=== PATIENT | female | born 1950 | race Two or more races ===

== ENCOUNTER 2022-11-06 14:03 | Inpatient (IN) | payer OTHER, MEDICAID ==
[~2022-11-06] VITALS: Ht 157.5 cm; Wt 96.0 kg
[2022-11-06] MEDS ORDERED: SODIUM CHLORIDE 0.9% 1,000 ML IV ONE (14:15)
[2022-11-06] MEDS ORDERED: DOCUSATE SOD 100 MG CAP PO ONE (14:15)
[2022-11-06 15:01] LABS: Alanine Aminotransferase 33 U/L (7-40); Alkaline Phosphatase 103 U/L (46-116); Aspartate Aminotransferase 35 U/L (13-40); BUN/Creatinine Ratio 18.5 (10.0-20.0); Blood Urea Nitrogen 22 mg/dL (9-23); Calcium 8.6 mg/dL (8.5-10.1); Chloride 97 mmol/L (98-107); Glucose 158 mg/dL (74-106); Potassium 3.9 mmol/L (3.5-5.1); Sodium 131 mmol/L (136-145)
[2022-11-06 15:02] LABS: Albumin 3.9 g/dL (3.2-4.8); Bilirubin, Total 0.8 mg/dL (0.2-1.0); Total Protein 6.9 g/dL (5.7-8.2)
[2022-11-06 15:44] LABS: Basophils # (auto) 0 10 ^3/uL (0-0.2); Basophils % (auto) 0.3 % (0.0-2.0); Eosinophils # (auto) 0.2 10 ^3/uL (0-0.8); Eosinophils % (auto) 1.4 % (0.0-7.0); Hematocrit 29.8 % (36.0-46.0); Hemoglobin 9.5 g/dL (12.2-16.2); Lymphocytes # (auto) 1.7 10 ^3/uL (0.4-5.4); Lymphocytes % (auto) 15.4 % (10.0-50.0); Mean Corpuscular Hemoglobin 25.3 pg (28.0-32.0); Mean Corpuscular Hgb Conc. 31.8 g/dL (32.0-36.0); Mean Corpuscular Volume 79.6 fL (80.0-100.0); Monocytes # (auto) 0.5 10 ^3/uL (0-1.3); Monocytes % (auto) 4.1 % (0.0-12.0); Neutrophils # (auto) 8.9 10 ^3/uL (1.6-8.6); Neutrophils % (auto) 78.8 % (37.0-80.0); Red Blood Cells 3.75 10^6/uL (4.0-5.20); Red Cell Distribution Width 18.2 % (11.8-14.3); White Blood Cell 11.4 10^3/uL (4.4-10.8)
[2022-11-06 15:58] LABS: Urine Bacteria NONE SEEN /hpf (None Seen); Urine Blood Negative /uL (Negative); Urine Clarity Clear (Clear); Urine Color Colorless (Yellow); Urine Protein, UAD Negative (Negative); Urine Specific Gravity 1.009 (1.001-1.035); Urine Urobilinogen Normal (Negative); Urine WBC <1 /hpf (0 - 5); Urine pH 5.5 (5.0-8.0)
[2022-11-06] MEDS: SODIUM CHLORIDE 0.9% 1,000 ML IV SCH (17:30)
[2022-11-06] MEDS ORDERED: DOCUSATE SOD 100 MG CAP PO PRN (17:30)
[2022-11-06] MEDS ORDERED: DEXTROSE (50%) 50ML SYRG IV PRN (18:15)
[2022-11-06 18:20] VITALS: PULSE 71; RESP 11; O2SAT 96
[2022-11-06] MEDS: InsuLIN REG 1unit/0.01ml Soln (100units/ml) SC SCH (18:30)
[2022-11-06] MEDS: ACCU-CHEK COMFORT CURVE STRIP VI SCH (18:30)
[2022-11-06 20:00] VITALS: PULSE 76; RESP 22; O2SAT 100
[2022-11-07] MEDS: ONDANSETRON HCL 4 MG/2 ML VIAL IV PRN (00:25)
[2022-11-07] MEDS: MORPHINE SULFATE INJ 2 MG/ml SYRG IV PRN ×2 (00:26→21:14)
[2022-11-07] MEDS: SODIUM CHLORIDE 0.9% 1,000 ML IV SCH ×3 (02:11→20:58)
[2022-11-07] MEDS ORDERED: LEVO50TA7 PO (05:23)
[2022-11-07] MEDS ORDERED: CARV25TA55 PO (05:23)
[2022-11-07] MEDS ORDERED: HYDR200T36 PO (05:23)
[2022-11-07] MEDS ORDERED: LOSA50TA46 PO (05:23)
[2022-11-07] MEDS ORDERED: GABA-1250 PO (05:23)
[2022-11-07] MEDS ORDERED: ASPI-543 PO (05:23)
[2022-11-07] MEDS ORDERED: OMEP20TA PO (05:23)
[2022-11-07 06:56] LABS: Alanine Aminotransferase 34 U/L (7-40); Albumin 4.2 g/dL (3.2-4.8); Alkaline Phosphatase 101 U/L (46-116); Anion Gap 8.2 (5-15); Aspartate Aminotransferase 33 U/L (13-40); BUN/Creatinine Ratio 13.9 (10.0-20.0); Blood Urea Nitrogen 16 mg/dL (9-23); Calcium 9.1 mg/dL (8.7-10.4); Carbon Dioxide 22.8 mmol/L (20-30); Chloride 106 mmol/L (98-107); Glucose 95 mg/dL (74-106); Sodium 137 mmol/L (136-145)
[2022-11-07 06:57] LABS: Bilirubin, Total 0.7 mg/dL (0.2-1.0); Total Protein 7.5 g/dL (5.7-8.2)
[2022-11-07] MEDS: InsuLIN REG 1unit/0.01ml Soln (100units/ml) SC SCH ×4 (07:00→21:14)
[2022-11-07] MEDS: ACCU-CHEK COMFORT CURVE STRIP VI SCH ×4 (07:04→21:14)
[2022-11-07 07:29] LABS: Basophils # (auto) 0 10 ^3/uL (0-0.2); Basophils % (auto) 0.6 % (0.0-2.0); Eosinophils # (auto) 0.3 10 ^3/uL (0-0.8); Eosinophils % (auto) 3.7 % (0.0-7.0); Hematocrit 30.8 % (36.0-46.0); Lymphocytes # (auto) 2.5 10 ^3/uL (0.4-5.4); Lymphocytes % (auto) 30.5 % (10.0-50.0); Mean Corpuscular Hemoglobin 25.6 pg (28.0-32.0); Mean Corpuscular Hgb Conc. 32.6 g/dL (32.0-36.0); Mean Corpuscular Volume 78.4 fL (80.0-100.0); Monocytes # (auto) 0.4 10 ^3/uL (0-1.3); Monocytes % (auto) 5.1 % (0.0-12.0); Neutrophils # (auto) 4.9 10 ^3/uL (1.6-8.6); Neutrophils % (auto) 60.1 % (37.0-80.0); Red Blood Cells 3.92 10^6/uL (4.0-5.20); White Blood Cell 8.1 10^3/uL (4.4-10.8)
[2022-11-07 08:00] VITALS: PULSE 60; RESP 12; O2SAT 100
[2022-11-07 09:22] LABS: Anisocytosis Slight; Platelet Estimate Adequate
[2022-11-07] MEDS ORDERED: LORazepam 2MG/ML-1ML VIAL IV PRN (10:15)
[2022-11-07 13:47] VITALS: BP 139/68; PULSE 69; RESP 14; TEMP 98.7; O2SAT 100
[2022-11-07 20:00] VITALS: PULSE 85
[2022-11-07 22:00] VITALS: BP 138/72; PULSE 100; RESP 22; TEMP 98.2; O2SAT 99
[2022-11-07 22:40] VITALS: PULSE 88; O2SAT 94
[2022-11-08] VITALS (8 sets, daily range): BP systolic 136–173; BP diastolic 66–94; PULSE 20–108; RESP 18–98; TEMP 36.4; O2SAT 95–100
[2022-11-08] MEDS: SODIUM CHLORIDE 0.9% 1,000 ML IV SCH ×3 (02:54→18:34)
[2022-11-08] MEDS: InsuLIN REG 1unit/0.01ml Soln (100units/ml) SC SCH (06:09)
[2022-11-08] MEDS: ACCU-CHEK COMFORT CURVE STRIP VI SCH (06:10)
[2022-11-08] MEDS: LOSARTAN POTASSIUM 50 MG TAB PO SCH (13:44)
[2022-11-08] MEDS: ASPirin-EC 81 mg tab PO SCH (13:44)
[2022-11-08] MEDS: hydrOXYchloroQUINE SULFATE 200 MG TAB PO SCH (13:45)
[2022-11-08] MEDS: LEVOTHYROXINE SODIUM 50 MCG TAB PO SCH (13:46)
[2022-11-08] MEDS: MORPHINE SULFATE INJ 2 MG/ml SYRG IV PRN (18:30)
[2022-11-08] MEDS ORDERED: GABAPENTIN 300 MG CAP PO SCH (22:00)
[2022-11-08] MEDS ORDERED: PATIENTS OWN MEDICATION (Carvedilol 25 MG) PO SCH (22:00)
[2022-11-08] MEDS: CARVEDILOL 12.5 MG TAB PO SCH (22:40)
[2022-11-09] MEDS ORDERED: MELATONIN 5 MG TAB PO ONE (01:22)
[2022-11-09] MEDS: ONDANSETRON HCL 4 MG/2 ML VIAL IV PRN (01:28)
[2022-11-09] MEDS: SODIUM CHLORIDE 0.9% 1,000 ML IV SCH ×2 (03:50→12:10)
[2022-11-09 05:00] VITALS: BP 155/38; PULSE 75; RESP 20; TEMP 98.5; O2SAT 99
[2022-11-09] MEDS: LEVOTHYROXINE SODIUM 50 MCG TAB PO SCH (06:03)
[2022-11-09 08:00] VITALS: BP 119/57; PULSE 65; PULSE 75; RESP 19; TEMP 36.9; O2SAT 96
[2022-11-09 09:00] VITALS: BP 119/57; PULSE 75; RESP 19; TEMP 97.8; O2SAT 96
[2022-11-09] MEDS: ASPirin-EC 81 mg tab PO SCH (09:18)
[2022-11-09] MEDS: hydrOXYchloroQUINE SULFATE 200 MG TAB PO SCH (09:18)
[2022-11-09] MEDS: CARVEDILOL 12.5 MG TAB PO SCH (09:18)
[2022-11-09] MEDS: LOSARTAN POTASSIUM 50 MG TAB PO SCH (09:19)
[2022-11-09 10:15] VITALS: BP 119/57; PULSE 75; TEMP 36.9
[2022-11-09 11:32] VITALS: BP 119/57; PULSE 75; TEMP 36.6
== END 2022-11-09 14:00 | disposition home health service (06) | DRG 312 ==
LOC: EDBD 14:03 → ER 14:03 → TELE 17:46 → TELE-WESTW 11-07 17:07
PROVIDERS: ADMIT Nurse Practitioner Family; ATTEND Family Medicine
PROC: 5A09357 Assistance with Respiratory Ventilation, Less than 24 Consecutive Hours, Continuous Positive Airway Pressure (ICD-10-PCS; principal; 2022-11-07)
DX: R55 Syncope and collapse (principal); D62 Acute posthemorrhagic anemia; N17.9 Acute kidney failure, unspecified; E87.1 Hypo-osmolality and hyponatremia; K80.20 Calculus of gallbladder without cholecystitis without obstruction; E03.9 Hypothyroidism, unspecified; N18.9 Chronic kidney disease, unspecified; E66.01 Morbid (severe) obesity due to excess calories; R73.9 Hyperglycemia, unspecified; M06.9 Rheumatoid arthritis, unspecified; I12.9 Hypertensive chronic kidney disease with stage 1 through stage 4 chronic kidney disease, or unspecified chronic kidney disease; G47.10 Hypersomnia, unspecified; E07.9 Disorder of thyroid, unspecified; K21.9 Gastro-esophageal reflux disease without esophagitis; E78.5 Hyperlipidemia, unspecified; R73.03 Prediabetes; Z99.3 Dependence on wheelchair; Z68.38 Body mass index [BMI] 38.0-38.9, adult
CPT/HCPCS: 36415; 70450; 70551; 71045; 74176; 80053; 81001; 82962; 83036; 83880; 84443; 84484; 85025; 93005; 93306; 93886; 94660; 95819; 96360; 96361; G0378; J2405

== ENCOUNTER 2024-08-06 18:55 | Inpatient (IN) | payer OTHER, MEDICAID ==
[~2024-08-06] VITALS: Ht 154.9 cm; Wt 88.3 kg
[~2024-08-06 18:55] MED LIST: ASPI-543 PO; CARV25TA55 PO; GABA-1250 PO; HYDR200T36 PO; LEVO50TA7 PO; LOSA-534 PO; OMEP20TA PO
--- NOTE | 2024-08-06 19:32 | ED.PDOC ---
History of Present Illness HPI Comments 73-year-old female came to ER for abnormal labs. Patient has history of peptic ulcer disease and GI bleed. Was sent here your provider care provider due to hemoglobin levels of 6.7. She denies any active bleeding. Denies any shortness a breath or history of blood transfusions. Patient does admit that she feels generally weak. Chief Complaint: Abnormal LAB's Time Seen by MD: 19:31 Primary Care Provider: IBARRA Reviewed Notes: Nurses Notes Allergies: Coded Allergies: Penicillins (Verified Allergy, Unknown, 08/06/24) Sulfa Antibiotics (Verified Allergy, Unknown, 11/06/22) Home Meds Reported Medications Omeprazole (Gnp Omeprazole) 20 Mg Tab, 40 MG PO, TAB 11/07/22 Hydroxychloroquine Sulfate (Hydroxychloroquine Sulfat) 200 Mg Tab, 200 MG PO, MG 11/07/22 Gabapentin (Gabapentin) 300 Mg Cap, 300 MG PO, MG 11/07/22 Carvedilol (Carvedilol) 25 Mg Tab, 25 MG PO Q12HR, MG 11/07/22 Levothyroxine Sodium (Levothyroxine Sodium) 50 Mcg Tab, 50 MCG PO QAM for 30 Days, MCG 11/07/22 Aspirin (Aspir-Low) 81 Mg Tab, 81 MG PO DAILY, MG 11/07/22 Losartan Potassium (Losartan Potassium) 50 Mg Tab, 50 MG PO DAILY for 30 Days, MG 11/07/22 Information Source: Patient Mode of Arrival: Ambulatory Severity: Moderate Timing: Hours Duration: Since onset Prehospital treatment: None Past Medical History PAST MEDICAL HISTORY: HTN, PUD Surgical History: Denies all surgeries TRAY FILLER History: Denies all TRAY FILLER Hx Family History Family History: Reviewed,noncontributory to illness Social History Smoker: Non-Smoker Alcohol: Denies ETOH Use Drugs: Denies Drug Use Lives In: Home Constitutional: reports: weakness; denies: chills, diaphoresis, fatigue, fever, malaise, sweats, others EENTM: denies: blurred vision, double vision, ear bleeding, ear discharge, ear drainage, ear pain, ear ringing, eye pain, eye redness, hearing loss, mouth pain, mouth swelling, nasal discharge, nose bleeding, nose congestion, nose pain, photophobia, tearing, throat pain, throat swelling, voice changes, others Respiratory: denies: cough, hemoptysis, orthopnea, SOB at rest, shortness of breath, SOB with excertion, stridor, wheezing, others Cardiovascular: denies: chest pain, dizzy spells, diaphoresis, Dyspnea on exertion, edema, irregular heart beat, left arm pain, lightheadedness, palpitations, PND, syncope, others Gastrointestinal: denies: abdomen distended, abdominal pain, blood streaked bowels, constipated, diarrhea, dysphagia, difficulty swallowing, hematemesis, melena, nausea, poor appetite, poor fluid intake, rectal bleeding, rectal pain, vomiting, others Genitourinary: denies: abnormal vagina bleeding, burning, dyspareunia, dysuria, flank pain, frequency, hematuria, incontinence, pain, , vagina discharge, urgency, others Neurological: denies: dizziness, fainting, headache, left sided numbness, left sided weakness, numbness, paresthesia, pre-existing deficit, right sided numbness, right sided weakness, seizure, speech problems, tingling, tremors, weakness, others Musculoskeletal: denies: back pain, gout, joint pain, joint swelling, muscle pain, muscle stiffness, neck pain, others Integumetry: denies: bruises, change in color, change in hair/nails, dryness, laceration, lesions, lumps, rash, wounds, others Allergic/Immunocompromised: denies: Difficulty Healing, Frequent Infections, Hives, Itching, others Hematologic/Lymphatic: denies: anemia, blood clots, easy bleeding, easy bruising, swollen glands, others Endocrine: denies: excessive hunger, excessive sweating, excessive thirst, excessive urination, flushing, intolerance to cold, intolerance to heat, unexplained weight gain, unexplained weight loss, others Psychiatric: denies: anxiety, bipolar disorder, depression, hopeless, panic disorder, schizophrenia, sleepless, suicidal, others Physical Exam General Appearance: No Apparent Distress, Normal HEENT: Normal ENT Inspection, Pharynx Normal, TMs Normal Neck: Full Range of Motion, Non-Tender, Normal, Normal Inspection Respiratory: Chest Non-Tender, Lungs Clear, No Accessory Muscle Use, No Respiratory Distress, Normal Breath Sounds Cardiovascular: No Edema, No JVD, No Murmur, No Gallop, Normal Peripheral Pulses, Regular Rate/Rhythm Breast Exam: Deferred Gastrointestinal: No Organomegaly, Non Tender, No Pulsatile Mass, Normal Bowel Sounds, Soft Genitalia: Deferred Pelvic: Deferred Rectal: Deferred Extremities: No calf tenderness, Normal capillary refill, Normal inspection, Normal range of motion, Non-tender, No pedal edema Musculoskeletal : Apperance: Normal Neurologic: Alert, instructor product inspection II-XII nml as Tested, No Motor Deficits, Normal Affect, Normal Mood, No Sensory Deficits Cerebellar Function: Normal Reflexes: Normal Skin: Dry, Normal Color, Warm Lymphatic: No Adenopathy Was a procedure done? Was a procedure done?: No Differential Dx Considerations may include: Anemia, electrolyte imbalance, GI bleed X-Ray, Labs, Meds, VS Vital Signs Date Time Temp Pulse Resp B/P (MAP) Pulse Ox O2 Delivery O2 Flow Rate FiO2 08/06/24 19:43 98.8 106 16 120/87 (98) 96 98.8 Lab Test 08/06/24 19:47 08/06/24 00:00 Range/Units White Blood Count 5.4 4.4-10.8 10^3/uL Red Blood Count 3.81 L 4.0-5.20 10^6/uL Hemoglobin 7.8 L 12.2-16.2 g/dL Hematocrit 25.5 L 36.0-46.0 % Mean Corpuscular Volume 66.8 L 80.0-100.0 fL Mean Corpuscular Hemoglobin 20.3 L 28.0-32.0 pg Mean Corpuscular Hemoglobin Concent 30.5 L 32.0-36.0 g/dL Red Cell Distribution Width 22.2 H 11.8-14.3 % Platelet Count 380 140-450 10^3/uL Mean Platelet Volume 8.0 6.9-10.8 fL Neutrophils (%) (Auto) 66.3 37.0-80.0 % Lymphocytes (%) (Auto) 23.4 10.0-50.0 % Monocytes (%) (Auto) 5.5 0.0-12.0 % Eosinophils (%) (Auto) 2.2 0.0-7.0 % Basophils (%) (Auto) 2.6 H 0.0-2.0 % Neutrophils # (Auto) 3.6 1.6-8.6 10 ^3/uL Lymphocytes # (Auto) 1.3 0.4-5.4 10 ^3/uL Monocytes # (Auto) 0.3 0-1.3 10 ^3/uL Eosinophils # (Auto) 0.1 0-0.8 10 ^3/uL Basophils # (Auto) 0.1 0-0.2 10 ^3/uL Nucleated Red Blood Cells 0.2 % Prothrombin Time 10.6 9.3-11.8 sec Prothrombin Time INR 1.00 0.9-1.15 Activated Partial Thromboplast Time 23.2 L 24.5-34.5 SEC Sodium Level 140 136-145 mmol/L Potassium Level 3.7 3.5-5.1 mmol/L Chloride Level 102 98-107 mmol/L Carbon Dioxide Level 25 20-31 mmol/L Anion Gap 13 5-15 Blood Urea Nitrogen 18 9-23 mg/dL Creatinine 1.31 H 0.550-1.02 mg/dL Glomerular Filtration Rate Calc 43 >90 mL/min BUN/Creatinine Ratio 13.7 10.0-20.0 Serum Glucose 163 H 74-106 mg/dL Calcium Level 9.9 8.7-10.4 mg/dL Total Bilirubin 0.4 0.2-1.0 mg/dL Aspartate Amino Transferase (AST) 26 13-40 U/L Alanine Aminotransferase (ALT) 20 7-40 U/L Alkaline Phosphatase 84 46-116 U/L Total Protein 7.8 5.7-8.2 g/dL Albumin 4.7 3.2-4.8 g/dL Urine Color Light-yellow Yellow Urine Clarity Clear Clear Urine pH 7.0 5.0-9.0 Urine Specific [place] 1.015 1.001-1.035 Urine Protein Negative Negative Urine Ketones Negative Negative Urine Blood Negative Negative /uL Urine Nitrite Negative Negative Urine Bilirubin Negative Negative Urine Urobilinogen Normal Negative mg/dL Urine Leukocyte Esterase Trace Negative /uL Urine RBC <1 0 - 4 /hpf Urine Microscopic WBC 10 H 0-5 /HPF Urine Squamous Epithelial Cells Few <5 /hpf Urine Bacteria Few H None Seen /hpf Urine Glucose Normal Normal mg/dL Time of 1ST Reevaluation: 19:26 Reevaluation 1ST: Unchanged Patient Education/Counseling: Diagnosis, Treatment Family Education/Counseling: Diagnosis, Treatment Departure 1 Departure Time of Disposition: 20:53 Impression: Primary Impression: Symptomatic anemia Additional Impressions: GI bleeding Acute renal injury Disposition: 09 ADMITTED INPATIENT Condition: Guarded Discharged With: Self Comments Generalized Weakness with Severe Anemia Chief Complaint: Generalized weakness x 1 week History of Present Illness: 73-year-old female presents to the ED with complaints of generalized weakness for the past week. Patient was initially evaluated at an outpatient clinic where laboratory studies revealed anemia, prompting referral to the emergency department for further evaluation. Of note, patient has a significant past medical history of intestinal bleeding. Current labs demonstrate severe microcytic anemia with hemoglobin of 7.8 g/dL and hematocrit of 25.5%, with MCV of 67, suggesting iron deficiency. Patient also presents with elevated creatinine of 1.31, indicating acute kidney injury. Review of Systems: Limited review of systems due to nature of documentation. Constitutional: Positive for generalized weakness Other systems: Deferred/unknown Past Medical History: History of intestinal bleeding Newly identified acute kidney injury Lab Results: Hemoglobin: 7.8 g/dL (Low) Hematocrit: 25.5% (Low) MCV: 67 (Low) Creatinine: 1.31 (Elevated) Imaging and Other Relevant Results: No imaging studies documented Medical Decision Making: Summary Statement: 73-year-old female with history of intestinal bleeding presenting with generalized weakness and severe microcytic anemia, complicated by acute kidney injury. Problem List: 1. Severe microcytic anemia (Hgb 7.8) 2. Suspected GI bleeding 3. Acute kidney injury 4. Generalized weakness Differential Diagnosis: 1. GI bleeding (given history) 2. Iron deficiency anemia 3. Pre-renal acute kidney injury 4. Other causes of anemia (B12 deficiency, chronic disease) ED Course: Patient evaluated in ED with labs revealing severe anemia and RENETTA. Decision made to admit for further workup and management. Plan for IV hydration and monitoring of hemoglobin/hematocrit with possible blood transfusion if needed. Assessment and Plan: 1. Severe Microcytic Anemia with Suspected GI Bleeding: - Admit to medical floor for close monitoring - Serial CBC monitoring - GI consultation during admission - Possible blood transfusion based on clinical status 2. Acute Kidney Injury: - IV fluid hydration - Monitor renal function - Avoid nephrotoxic medications 3. Disposition: - Admission to medical floor - Close monitoring of hemodynamic status Billing Information: ICD-10: D64.9 - Anemia, unspecified ICD-10: N17.9 - Acute kidney failure, unspecified ICD-10: R53.1 - Weakness ICD-10: K92.2 - Gastrointestinal hemorrhage, unspecified Critical Care Note Critical Care Time?: Yes (35 min-critical care time only) Critical care comment: Total critical care time: Approximately 36 minutes Due to a high probability of clinically significant, life threatening deterioration, the patient required my highest level of preparedness to intervene emergently and I personally spent this critical care time directly and personally managing the patient. This critical care time included obtaining a history; examining the patient; pulse oximetry; ordering and review of studies; arranging urgent treatment with development of a management plan; evaluation of patient's response to treatment; frequent reassessment; and, discussions with other providers. This critical care time was performed to assess and manage the high probability of imminent, life-threatening deterioration that could result in multi-organ failure. It was exclusive of separately billable procedures and treating other patients. Stability Stability form required: No Heart Score Heart Score: Heart Score Response (Comments) Value History N/A 0 EKG N/A 0 Age N/A 0 Risk Factors N/A 0 Troponin N/A 0 Total 0 I personally scribed for JAZMIN VYAS MD ([email or web address]) on 08/06/24 at 19:32. Electronically submitted by Garrison Parr ([email or web address]). JAZMIN VYAS MD August 06, 2024 19:32
[2024-08-06 20:09] LABS: Eosinophils # (auto) 0.1 10 ^3/uL (0-0.8); Hematocrit 25.5 % (36.0-46.0); Lymphocytes # (auto) 1.3 10 ^3/uL (0.4-5.4); Mean Corpuscular Volume 66.8 fL (80.0-100.0); Monocytes # (auto) 0.3 10 ^3/uL (0-1.3)
[2024-08-06 20:10] LABS: Basophils # (auto) 0.1 10 ^3/uL (0-0.2); Basophils % (auto) 2.6 % (0.0-2.0); Eosinophils % (auto) 2.2 % (0.0-7.0); Hemoglobin 7.8 g/dL (12.2-16.2); Lymphocytes % (auto) 23.4 % (10.0-50.0); Mean Corpuscular Hemoglobin 20.3 pg (28.0-32.0); Mean Corpuscular Hgb Conc. 30.5 g/dL (32.0-36.0); Monocytes % (auto) 5.5 % (0.0-12.0); Neutrophils # (auto) 3.6 10 ^3/uL (1.6-8.6); Neutrophils % (auto) 66.3 % (37.0-80.0); Nucleated Red Blood Cells % 0.2 %; Platelet Count (auto) 380 10^3/uL (140-450); Red Blood Cells 3.81 10^6/uL (4.0-5.20); White Blood Cell 5.4 10^3/uL (4.4-10.8)
[2024-08-06 20:13] LABS: Red Cell Distribution Width 22.2 % (11.8-14.3)
[2024-08-06 20:18] LABS: Alanine Aminotransferase 20 U/L (7-40); Albumin 4.7 g/dL (3.2-4.8); Alkaline Phosphatase 84 U/L (46-116); Anion Gap 13 (5-15); Aspartate Aminotransferase 26 U/L (13-40); BUN/Creatinine Ratio 13.7 (10.0-20.0); Blood Urea Nitrogen 18 mg/dL (9-23); Calcium 9.9 mg/dL (8.7-10.4); Carbon Dioxide 25 mmol/L (20-31); Chloride 102 mmol/L (98-107); Potassium 3.7 mmol/L (3.5-5.1); Sodium 140 mmol/L (136-145); Total Protein 7.8 g/dL (5.7-8.2)
[2024-08-06 20:19] LABS: Bilirubin, Total 0.4 mg/dL (0.2-1.0); Glucose 163 mg/dL (74-106)
[2024-08-06 20:24] LABS: Partial Thromboplastin Time 23.2 SEC (24.5-34.5); Prothrombin Time 10.6 sec (9.3-11.8)
[2024-08-06 20:29] LABS: Urine Bacteria FEW /hpf (None Seen); Urine Blood Negative /uL (Negative); Urine Clarity Clear (Clear); Urine Color Light-Yellow (Yellow); Urine Protein, UAD Negative (Negative); Urine Specific Gravity 1.015 (1.001-1.035); Urine Squamous Epithelial Cell FEW /hpf (<5); Urine Urobilinogen Normal (Negative); Urine WBC 10 /HPF (0-5)
[2024-08-06] MEDS: PANTOPRAZOLE 40 MG/10 ML VIAL INJ IV ONE (21:00)
[2024-08-06] MEDS: SODIUM CHLORIDE 0.9% 500 ML IVB ONE (22:29)
[2024-08-06] MEDS ORDERED: SODIUM CHLORIDE 0.9% 1,000 ML IV SCH (22:30)
[2024-08-06] MEDS ORDERED: DEXTROSE (50%) 50ML SYRG IV PRN (22:30)
[2024-08-06] MEDS: PANTOPRAZOLE 40 MG/10 ML VIAL INJ IV SCH (23:17)
[2024-08-06 23:42] LABS: Erythrocyte Sedimentation Rate 84 mm/hr (0-20)
[2024-08-06 23:47] LABS: % Iron Saturation 4.1 % (15-50)
[2024-08-07] VITALS (12 sets, daily range): BP systolic 134–160; BP diastolic 64–98; PULSE 81–97; RESP 16–19; TEMP 97.5–98.6; O2SAT 93–100
[2024-08-07] MEDS: ACCU-CHEK COMFORT CURVE STRIP VI SCH
[2024-08-07 00:07] LABS: Ferritin 12.5 ng/mL (10-291)
--- NOTE | 2024-08-07 00:40 | DVH ---
CHEST RADIOGRAPH Indication: DYSPNEA Technique: Single frontal view of the chest was obtained COMPARISON: XY CHEST PORTABLE on DOS: 11/06/22 FINDINGS: Lines and Tubes: None Lungs: Clear Pleura: No effusion. No pneumothorax. Cardiomediastinal contours: Unremarkable IMPRESSION: No acute disease.
[2024-08-07] MEDS: predniSONE 20 MG TAB PO SCH (01:34)
[2024-08-07] MEDS: HYDROcodone-ACET 5/325MG TAB PO PRN (01:36)
--- NOTE | 2024-08-07 02:20 | DVHHP2 ---
History of Present Illness History of Present Illness A 73-year-old female with history of peptic ulcer disease, prior GI bleed, rheumatoid arthritis, hypothyroidism, hypertension, and possible prior stroke was referred to the ED by her PCP, Dr. Shah, due to hemoglobin 6.7. Patient denies shortness of breath or active bleeding at this time. However, she reports intermittent episodes of rectal hematochezia for the past two years. She has undergone three colonoscopiesthe last one in November 2023which reportedly did not show a clear source. She also reports a prior GI bleeding episode about one month ago. Currently, she feels generally weak. She endorses bilateral shoulder and knee pain, and inflammatory markers are elevated (ESR/CRP), raising concern for an RA flare. She was found to have iron deficiency anemia and has been started on IV iron. Transfusion planned if Hb <7. Past Medical History Surgical History: Denies all surgeries JAW SKINNER History: Denies all JAW SKINNER Hx Social History Smoker: Non-Smoker Alcohol: Denies ETOH Use Drugs: Denies Drug Use Lives In: Home Review of Systems Review of Systems Positive: weakness, hematochezia, joint pain Negative: melena, hematemesis, chest pain, SOB Allergies: Coded Allergies: Penicillins (Verified Allergy, Unknown, 08/06/24) Sulfa Antibiotics (Verified Allergy, Unknown, 11/06/22) Medications Current Medications Medications Dose Ordered Sig/Karen Route Start Time Stop Time Status Last Admin Dose Admin Levothyroxine Sodium 50 mcg QAM@0600 PO 08/07/24 06:00 Acetaminophen/ Hydrocodone Bitart 1 tab Q6HPRN PRN PO 08/07/24 00:30 08/07/24 01:36 1 TAB Pantoprazole Sodium 40 mg DAILY IV 08/07/24 10:00 Iron Sucrose 110 ml @ 110 mls/hr DAILY@1200 IV 08/07/24 12:00 08/11/24 12:59 Prednisone 20 mg DAILY PO 08/07/24 00:45 08/07/24 01:34 20 MG Hydroxychloroquine Sulfate 200 mg DAILY PO 08/07/24 10:00 Exam Vital Signs Vital Signs Date Time Temp Pulse Resp B/P (MAP) Pulse Ox O2 Delivery O2 Flow Rate FiO2 08/07/24 01:07 97.8 90 16 144/64 (90) 100 97.8 08/07/24 01:00 Room Air* 0 21 21 General Appearance: Alert, Oriented X3 HEENT: Atraumatic, PERRLA Respiratory: Clear to auscultation, Normal air movement Cardiovascular: Regular rate, Normal S1 Abdominal: Normal bowel sounds, Soft Extremities: No clubbing, No cyanosis Skin: No rashes, No breakdown Neuro: Normal gait, Normal speech Psych/Mental Status: Mental status NL Labs/Xrays Labs Test 08/07/24 02:05 08/06/24 19:47 08/06/24 00:00 Range/Units White Blood Count 5.4 4.4-10.8 10^3/uL Red Blood Count 3.81 L 4.0-5.20 10^6/uL Mean Corpuscular Volume 66.8 L 80.0-100.0 fL Mean Corpuscular Hemoglobin 20.3 L 28.0-32.0 pg Mean Corpuscular Hemoglobin Concent 30.5 L 32.0-36.0 g/dL Red Cell Distribution Width 22.2 H 11.8-14.3 % Platelet Count 380 140-450 10^3/uL Mean Platelet Volume 8.0 6.9-10.8 fL Neutrophils (%) (Auto) 66.3 37.0-80.0 % Lymphocytes (%) (Auto) 23.4 10.0-50.0 % Monocytes (%) (Auto) 5.5 0.0-12.0 % Eosinophils (%) (Auto) 2.2 0.0-7.0 % Basophils (%) (Auto) 2.6 H 0.0-2.0 % Neutrophils # (Auto) 3.6 1.6-8.6 10 ^3/uL Lymphocytes # (Auto) 1.3 0.4-5.4 10 ^3/uL Monocytes # (Auto) 0.3 0-1.3 10 ^3/uL Eosinophils # (Auto) 0.1 0-0.8 10 ^3/uL Basophils # (Auto) 0.1 0-0.2 10 ^3/uL Nucleated Red Blood Cells 0.2 % Erythrocyte Sedimentation Rate 84 H 0-20 mm/hr Prothrombin Time 10.6 9.3-11.8 sec Prothrombin Time INR 1.00 0.9-1.15 Activated Partial Thromboplast Time 23.2 L 24.5-34.5 SEC Sodium Level 140 136-145 mmol/L Potassium Level 3.7 3.5-5.1 mmol/L Chloride Level 102 98-107 mmol/L Carbon Dioxide Level 25 20-31 mmol/L Anion Gap 13 5-15 Blood Urea Nitrogen 18 9-23 mg/dL Creatinine 1.31 H 0.550-1.02 mg/dL Glomerular Filtration Rate Calc 43 >90 mL/min BUN/Creatinine Ratio 13.7 10.0-20.0 Serum Glucose 163 H 74-106 mg/dL Hemoglobin A1c 5.8 H <5.7 % A1C Calcium Level 9.9 8.7-10.4 mg/dL Iron Level 19 L 50-170 ug/dL Total Iron Binding Capacity 460 H 250-425 ug/dL Percent Iron Saturation 4.1 L 15-50 % Ferritin 12.5 10-291 ng/mL Total Bilirubin 0.4 0.2-1.0 mg/dL Aspartate Amino Transferase (AST) 26 13-40 U/L Alanine Aminotransferase (ALT) 20 7-40 U/L Alkaline Phosphatase 84 46-116 U/L C-Reactive Protein High Sensitivity 2.27 H <1.0 mg/dL B-Type Natriuretic Peptide 36.55 0-100 pg/mL Total Protein 7.8 5.7-8.2 g/dL Albumin 4.7 3.2-4.8 g/dL Vitamin B12 Level 1231 H 211-911 pg/mL Thyroid Stimulating Hormone (TSH) 2.92 0.55-4.78 uIU/mL Urine Color Light-yellow Yellow Urine Clarity Clear Clear Urine pH 7.0 5.0-9.0 Urine Specific [place] 1.015 1.001-1.035 Urine Protein Negative Negative Urine Ketones Negative Negative Urine Blood Negative Negative /uL Urine Nitrite Negative Negative Urine Bilirubin Negative Negative Urine Urobilinogen Normal Negative mg/dL Urine Leukocyte Esterase Trace Negative /uL Urine RBC <1 0 - 4 /hpf Urine Microscopic WBC 10 H 0-5 /HPF Urine Squamous Epithelial Cells Few <5 /hpf Urine Bacteria Few H None Seen /hpf Urine Glucose Normal Normal mg/dL Assessment/Plan Assessment/Plan #Acute on chronic anemia #Iron deficiency anemia #GI bleeding? #RA, acute flare up? #Hypothyroidism #H/o stroke? #Asymptomatic bacteriuria #RENETTA on possible CKD #h/o HTN #H/o neuropathy Admit Clear liquid diet Med surg Iron IV Trending Hb, transfuse below 7 Plaquenil 200mg PO Prednisone 20 mg PO Gi consult Labs am Protonix daily Hold on aspirin and DVT prohylaxis Case discussed with Dr Garcia Full code Plan discussed with: Patient, Other My Orders Orders - CLARY VU Procedure Category Date Status Time Admit ADMIT 08/06/24 Transmitted 22:26 Code Status CODE 08/06/24 Transmitted 22:26 Vital Signs JESSENIA 08/06/24 In Process 22:26 Review Orders With JESSENIA 08/06/24 In Process Adm.Md 22:26 Notify Md Of Changes JESSENIA 08/06/24 In Process From Base 22:26 Advance Directive JESSENIA 08/06/24 In Process 22:26 Patient Condition ORDERS 08/06/24 Transmitted 22:26 Allergies JESSENIA 08/06/24 In Process 22:26 Hemoglobin & LAB 08/07/24 In Process Hematocrit 02:00 Stool Occult Blood LAB 08/06/24 Logged 22:28 * Gi Dvh Metal Leaf Layer CONS 08/06/24 Transmitted 22:28 Clear Liq Diet DIET 08/07/24 Transmitted Breakfast Chest Xray 1 View XY 08/06/24 Resulted 23:13 Folate (Folic Acid) LAB 08/06/24 In Process 23:13 Vitamin B12 LAB 08/06/24 In Process 23:13 Ferritin LAB 08/06/24 In Process 23:13 Levothyroxine Tablet PHA 08/07/24 In Process (Synthroid Tablet) 06:00 Urine Bacterial ASHLEY 08/06/24 In Process Culture 23:31 Hydrocodone-Acet PHA 08/07/24 In Process 5/325mg Tab ([place] 00:30 Pantoprazole PHA 08/07/24 In Process (Protonix) 10:00 Iron Sucrose Complex PHA 08/07/24 In Process (Venofer) 12:00 Prednisone Tablet PHA 08/07/24 In Process 00:45 Hydroxychloroquine PHA 08/07/24 In Process Tablet (Plaquenil Tab 10:00 Hepatitis B Surface LAB 08/07/24 In Process Antigen 02:02 Hepatitis C Antibody LAB 08/07/24 In Process 02:02 Date of Service: August 06, 2024 Billing Provider: POWER GARCIA MD Common Visit Codes: 83742-[id number] INP/OBS CARE (HIGH) Secondary Visit Codes: [id number] CARE PLAN 30 MINUTES CLARY VU RESIDENT August 07, 2024 02:20
[2024-08-07 03:00] LABS: Hematocrit 23.4 % (36.0-46.0); Hemoglobin 7.4 g/dL (12.2-16.2)
[2024-08-07] MEDS: LEVOTHYROXINE SODIUM 50 MCG TAB PO SCH (04:59)
[2024-08-07 06:01] LABS: Basophils # (auto) 0.1 10 ^3/uL (0-0.2); Monocytes # (auto) 0.2 10 ^3/uL (0-1.3); Nucleated Red Blood Cells % 0.1 %; Red Blood Cells 3.48 10^6/uL (4.0-5.20)
[2024-08-07 06:05] LABS: Basophils % (auto) 1.3 % (0.0-2.0); Eosinophils # (auto) 0 10 ^3/uL (0-0.8); Eosinophils % (auto) 0.5 % (0.0-7.0); Hematocrit 23.1 % (36.0-46.0); Hemoglobin 7.1 g/dL (12.2-16.2); Lymphocytes # (auto) 0.8 10 ^3/uL (0.4-5.4); Lymphocytes % (auto) 11.4 % (10.0-50.0); Mean Corpuscular Hemoglobin 20.3 pg (28.0-32.0); Mean Corpuscular Hgb Conc. 30.5 g/dL (32.0-36.0); Mean Corpuscular Volume 66.5 fL (80.0-100.0); Monocytes % (auto) 2.1 % (0.0-12.0); Neutrophils # (auto) 6.3 10 ^3/uL (1.6-8.6); Neutrophils % (auto) 84.7 % (37.0-80.0); Platelet Count (auto) 328 10^3/uL (140-450); Red Cell Distribution Width 21.9 % (11.8-14.3); White Blood Cell 7.4 10^3/uL (4.4-10.8)
[2024-08-07 06:13] LABS: Anisocytosis Slight; Hypochromia Marked; Platelet Estimate Adequate
[2024-08-07 06:25] LABS: Alanine Aminotransferase 19 U/L (7-40); Alkaline Phosphatase 78 U/L (46-116); Anion Gap 12 (5-15); BUN/Creatinine Ratio 14.9 (10.0-20.0); Blood Urea Nitrogen 17 mg/dL (9-23); Calcium 10.2 mg/dL (8.7-10.4); Carbon Dioxide 23 mmol/L (20-31); Chloride 105 mmol/L (98-107); Sodium 140 mmol/L (136-145); Total Protein 7.1 g/dL (5.7-8.2)
[2024-08-07 06:26] LABS: Albumin 4.3 g/dL (3.2-4.8)
[2024-08-07 06:27] LABS: Aspartate Aminotransferase 24 U/L (13-40); Bilirubin, Total 0.4 mg/dL (0.2-1.0)
[2024-08-07 06:29] LABS: Glucose 139 mg/dL (74-106)
[2024-08-07] MEDS ORDERED: SUCRALFATE 1 GM TAB PO SCH (07:00)
--- NOTE | 2024-08-07 09:03 | DVHINCON2 ---
Date of service: August 07, [address] Echevarria Reason for Consultation Anemia History of Present Illness A 73-year-old female with history of peptic ulcer disease, prior GI bleed, rheumatoid arthritis, hypothyroidism, hypertension, and possible prior stroke was referred to the ED by her PCP, Dr. Shah, due to hemoglobin 6.7. Patient denies shortness of breath or active bleeding at this time. However, she reports intermittent episodes of rectal hematochezia for the past two years. She has undergone three colonoscopiesthe last one in November 2023which reportedly did not show a clear source. She also reports a prior GI bleeding episode about one month ago. Currently, she feels generally weak. She endorses bilateral shoulder and knee pain, and inflammatory markers are elevated (ESR/CRP), raising concern for an RA flare. She was found to have iron deficiency anemia and has been started on IV iron. Transfusion planned if Hb <7. Past Medical History peptic ulcer disease, prior GI bleed, rheumatoid arthritis, hypothyroidism, hypertension, and possible prior TIA With no residual Dificid Past Surgical History Cataract surgery Left knee surgery Family History: FH: heart disease G8 FATHER Allergies: Coded Allergies: Penicillins (Verified Allergy, Unknown, 08/06/24) Sulfa Antibiotics (Verified Allergy, Unknown, 11/06/22) Home Meds Reported Medications Omeprazole (Gnp Omeprazole) 20 Mg Tab, 40 MG PO, TAB 11/07/22 Hydroxychloroquine Sulfate (Hydroxychloroquine Sulfat) 200 Mg Tab, 200 MG PO, MG 11/07/22 Gabapentin (Gabapentin) 300 Mg Cap, 300 MG PO, MG 11/07/22 Carvedilol (Carvedilol) 25 Mg Tab, 25 MG PO Q12HR, MG 11/07/22 Levothyroxine Sodium (Levothyroxine Sodium) 50 Mcg Tab, 50 MCG PO QAM for 30 Days, MCG 11/07/22 Aspirin (Aspir-Low) 81 Mg Tab, 81 MG PO DAILY, MG 11/07/22 Losartan Potassium (Losartan Potassium) 50 Mg Tab, 50 MG PO DAILY for 30 Days, MG 11/07/22 Current Medications Current Medications Medications (Trade) Dose Ordered Sig/Karen Route PRN Reason Start Time Stop Time Status Last Admin Pantoprazole Sodium (Protonix) 40 mg BID IV 08/06/24 22:30 08/07/24 00:40 DC 08/06/24 23:17 Sodium Chloride 1,000 ml @ 60 mls/hr [id number] IV 08/06/24 22:30 08/07/24 00:28 DC Sucralfate (Carafate Tab) 1 gm QIDACHS PO 08/07/24 07:00 08/06/24 23:13 DC Diagnostic Test (Pha) (Accu-Chek Comfort Curve T) 1 strip Q6HR 08/07/24 00:00 08/07/24 00:28 DC Dextrose 50 ml UD PRN IV Blood Sugar LESS THAN 60 08/06/24 22:30 08/07/24 00:28 DC Levothyroxine Sodium (Synthroid Tablet) 50 mcg QAM@0600 PO 08/07/24 06:00 08/07/24 04:59 Acetaminophen/ Hydrocodone Bitart ([place] 5/325MG Tab) 1 tab Q6HPRN PRN PO MODERATE PAIN (4-6 PAIN SCALE) 08/07/24 00:30 08/07/24 01:36 Pantoprazole Sodium (Protonix) 40 mg DAILY IV 08/07/24 10:00 Iron Sucrose 110 ml @ 110 mls/hr DAILY@1200 IV 08/07/24 12:00 08/11/24 12:59 Prednisone 20 mg DAILY PO 08/07/24 00:45 08/07/24 01:34 Hydroxychloroquine Sulfate (Plaquenil Tablet) 200 mg DAILY PO 08/07/24 10:00 Vital Signs Vital Signs Date Time Temp Pulse Resp B/P (MAP) Pulse Ox O2 Delivery O2 Flow Rate FiO2 08/07/24 05:00 98.5 97 18 153/85 (107) 93 98.5 08/07/24 01:07 Room Air* 0 21 Physical Exam Hemodynamically stable no localizing signs Full physical examination deferred Labs/Diagnostic Data Labs Test 08/07/24 05:20 08/07/24 02:05 08/06/24 19:47 08/06/24 00:00 Range/Units White Blood Count 7.4 # 4.4-10.8 10^3/uL Red Blood Count 3.48 L 4.0-5.20 10^6/uL Hemoglobin 7.1 L 12.2-16.2 g/dL Hematocrit 23.1 L 36.0-46.0 % Mean Corpuscular Volume 66.5 L 80.0-100.0 fL Mean Corpuscular Hemoglobin 20.3 L 28.0-32.0 pg Mean Corpuscular Hemoglobin Concent 30.5 L 32.0-36.0 g/dL Red Cell Distribution Width 21.9 H 11.8-14.3 % Platelet Count 328 140-450 10^3/uL Mean Platelet Volume 8.3 6.9-10.8 fL Neutrophils (%) (Auto) 84.7 H 37.0-80.0 % Lymphocytes (%) (Auto) 11.4 10.0-50.0 % Monocytes (%) (Auto) 2.1 0.0-12.0 % Eosinophils (%) (Auto) 0.5 0.0-7.0 % Basophils (%) (Auto) 1.3 0.0-2.0 % Neutrophils # (Auto) 6.3 1.6-8.6 10 ^3/uL Lymphocytes # (Auto) 0.8 0.4-5.4 10 ^3/uL Monocytes # (Auto) 0.2 0-1.3 10 ^3/uL Eosinophils # (Auto) 0 0-0.8 10 ^3/uL Basophils # (Auto) 0.1 0-0.2 10 ^3/uL Nucleated Red Blood Cells 0.1 % Platelet Estimate Adequate Hypochromasia (manual) Marked Anisocytosis (manual) Slight Microcytosis Marked Sodium Level 140 136-145 mmol/L Potassium Level 4.0 3.5-5.1 mmol/L Chloride Level 105 98-107 mmol/L Carbon Dioxide Level 23 20-31 mmol/L Anion Gap 12 5-15 Blood Urea Nitrogen 17 9-23 mg/dL Creatinine 1.14 H 0.550-1.02 mg/dL Glomerular Filtration Rate Calc 51 >90 mL/min BUN/Creatinine Ratio 14.9 10.0-20.0 Serum Glucose 139 H 74-106 mg/dL Calcium Level 10.2 8.7-10.4 mg/dL Total Bilirubin 0.4 0.2-1.0 mg/dL Aspartate Amino Transferase (AST) 24 13-40 U/L Alanine Aminotransferase (ALT) 19 7-40 U/L Alkaline Phosphatase 78 46-116 U/L Total Protein 7.1 5.7-8.2 g/dL Albumin 4.3 3.2-4.8 g/dL Erythrocyte Sedimentation Rate 84 H 0-20 mm/hr Prothrombin Time 10.6 9.3-11.8 sec Prothrombin Time INR 1.00 0.9-1.15 Activated Partial Thromboplast Time 23.2 L 24.5-34.5 SEC Hemoglobin A1c 5.8 H <5.7 % A1C Iron Level 19 L 50-170 ug/dL Total Iron Binding Capacity 460 H 250-425 ug/dL Percent Iron Saturation 4.1 L 15-50 % Ferritin 12.5 10-291 ng/mL C-Reactive Protein High Sensitivity 2.27 H <1.0 mg/dL B-Type Natriuretic Peptide 36.55 0-100 pg/mL Vitamin B12 Level 1231 H 211-911 pg/mL Thyroid Stimulating Hormone (TSH) 2.92 0.55-4.78 uIU/mL Urine Color Light-yellow Yellow Urine Clarity Clear Clear Urine pH 7.0 5.0-9.0 Urine Specific [place] 1.015 1.001-1.035 Urine Protein Negative Negative Urine Ketones Negative Negative Urine Blood Negative Negative /uL Urine Nitrite Negative Negative Urine Bilirubin Negative Negative Urine Urobilinogen Normal Negative mg/dL Urine Leukocyte Esterase Trace Negative /uL Urine RBC <1 0 - 4 /hpf Urine Microscopic WBC 10 H 0-5 /HPF Urine Squamous Epithelial Cells Few <5 /hpf Urine Bacteria Few H None Seen /hpf Urine Glucose Normal Normal mg/dL LAST ABD CT SCAN 2022 IMPRESSION: 1. No acute abdominal or pelvic findings. 2. Cholelithiasis Problems(with codes): (1) Rheumatoid arthritis flare (2) Microcytic anemia (3) Symptomatic anemia Plan/Recommendation Plan Patient is going to be transfused 1 unit PRBC Check stool for occult blood Protonix 40 mg p.o. daily Carafate 1 g p.o. twice a day DC aspirin NSAIDs smoking and alcohol Review last endoscopy and colonoscopy results Evaluate patient for a possible repeat endoscopy she can follow up in my office as an outpatient in 1-2 weeks to arrange outpatient elective panendoscopy after reviewing previous records Plan discussed with: Other (None) SAROJ VINCENT MD August 07, 2024 09:03
[2024-08-07 09:27] LABS: Hematocrit 23.2 % (36.0-46.0)
[2024-08-07] MEDS: hydrOXYchloroQUINE SULFATE 200 MG TAB PO SCH (09:48)
[2024-08-07] MEDS: PANTOPRAZOLE 40 MG/10 ML VIAL INJ IV SCH (09:48)
[2024-08-07] MEDS: IRON SUCROSE COMPLEX 110 ML IV SCH (11:09)
[2024-08-07] MEDS ORDERED: LOSA-535 PO (11:52)
[2024-08-07] MEDS: LOSARTAN POTASSIUM 50 MG TAB PO SCH (14:12)
[2024-08-07] MEDS ORDERED: hydrALAZINE HCL 20 MG/ML VL IV PRN (14:30)
--- NOTE | 2024-08-07 16:25 | DVHPN2 ---
Subjective Patient was sent by PCP for low hemoglobin. 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 Medications Current Medications Medications Dose Ordered Sig/Karen Route Start Time Stop Time Status Last Admin Dose Admin Levothyroxine Sodium 50 mcg QAM@0600 PO 08/07/24 06:00 08/07/24 04:59 50 MCG Acetaminophen/ Hydrocodone Bitart 1 tab Q6HPRN PRN PO 08/07/24 00:30 08/07/24 01:36 1 TAB Pantoprazole Sodium 40 mg DAILY IV 08/07/24 10:00 08/07/24 09:48 40 MG Iron Sucrose 110 ml @ 110 mls/hr DAILY@1200 IV 08/07/24 12:00 08/11/24 12:59 Prednisone 20 mg DAILY PO 08/07/24 00:45 08/07/24 01:34 20 MG Hydroxychloroquine Sulfate 200 mg DAILY PO 08/07/24 10:00 08/07/24 09:48 200 MG Losartan Potassium 100 mg DAILY PO 08/07/24 12:45 08/07/24 14:12 100 MG Hydralazine HCl 10 mg Q6HPRN PRN IV 08/07/24 14:30 Laboratory Results Laboratory Tests 08/07/24 05:20 08/07/24 09:08 Chemistry Test 08/06/24 19:47 08/07/24 05:20 Albumin 4.7 g/dL (3.2-4.8) 4.3 g/dL (3.2-4.8) Calcium Level 9.9 mg/dL (8.7-10.4) 10.2 mg/dL (8.7-10.4) Total Protein 7.8 g/dL (5.7-8.2) 7.1 g/dL (5.7-8.2) Coagulation Test 08/06/24 19:47 Prothrombin Time 10.6 sec (9.3-11.8) Prothrombin Time INR 1.00 (0.9-1.15) Activated Partial Thromboplast Time 23.2 SEC (24.5-34.5) L Cardiac Markers Test 08/06/24 19:47 B-Type Natriuretic Peptide 36.55 pg/mL (0-100) LFT Test 08/06/24 19:47 08/07/24 05:20 Alanine Aminotransferase (ALT) 20 U/L (7-40) 19 U/L (7-40) Alkaline Phosphatase 84 U/L (46-116) 78 U/L (46-116) Aspartate Amino Transferase (AST) 26 U/L (13-40) 24 U/L (13-40) Total Bilirubin 0.4 mg/dL (0.2-1.0) 0.4 mg/dL (0.2-1.0) HgA1c, TSH Test 08/06/24 19:47 Hemoglobin A1c 5.8 % A1C (<5.7) H Thyroid Stimulating Hormone (TSH) 2.92 uIU/mL (0.55-4.78) Urinalysis Test 08/06/24 00:00 Urine Color Light-yellow (Yellow) Urine Clarity Clear (Clear) Urine pH 7.0 (5.0-9.0) Urine Specific [place] 1.015 (1.001-1.035) Urine Protein Negative (Negative) Urine Ketones Negative (Negative) Urine Blood Negative /uL (Negative) Urine Nitrite Negative (Negative) Urine Bilirubin Negative (Negative) Urine Urobilinogen Normal mg/dL (Negative) Urine Leukocyte Esterase Trace /uL (Negative) Urine RBC <1 /hpf (0 - 4) Urine Microscopic WBC 10 /HPF (0-5) H Urine Squamous Epithelial Cells Few /hpf (<5) Urine Bacteria Few /hpf (None Seen) H Urine Glucose Normal mg/dL (Normal) Microbiology Microbiology Date/Time Source Procedure Growth Status 08/07/24 07:25 Stool Ordered Assessment/Plan Assessment/Plan A 73-year-old female with history of peptic ulcer disease, prior GI bleed, rheumatoid arthritis, hypothyroidism, hypertension, and possible prior stroke was referred to the ED by her PCP, Dr. Shah, due to hemoglobin 6.7. 1. Acute on chronic anemia without any active evidence of bleeding 2. Iron-deficiency anemia 3. Hypotension 4. Peptic ulcer disease 5. Rheumatoid arthritis 6. Hypotension -transfuse 1 unit of packed RBC, repeat labs, follow up GI recommendations. Plan discussed with: Patient My Orders Orders - VINEET DEL CASTILLO MD Procedure Category Date Status Time Losartan Tablet PHA 08/07/24 In Process (Cozaar Tablet) 12:45 Hydralazine Injection PHA 08/07/24 In Process (Apresoline Inject 14:30 Complete Blood Count LAB 08/08/24 Verified 04:00 Date of Service: August 07, 2024 Billing Provider: VINEET DEL CASTILLO MD Common Visit Codes: [id number] INP/OBS CARE(MOD) VINEET DEL CASTILLO MD August 07, 2024 16:25
[2024-08-07] MEDS ORDERED: hydrALAZINE HCL 20 MG/ML VL IV SCH (18:00)
[2024-08-08] VITALS (7 sets, daily range): BP systolic 136–155; BP diastolic 69–85; PULSE 58–88; RESP 16–19; TEMP 97.3–98.6; O2SAT 95–99
[2024-08-08 07:13] LABS: Basophils # (auto) 0 10 ^3/uL (0-0.2); Eosinophils # (auto) 0.1 10 ^3/uL (0-0.8); Eosinophils % (auto) 2.3 % (0.0-7.0); Hematocrit 27.1 % (36.0-46.0); Hemoglobin 8.4 g/dL (12.2-16.2); Lymphocytes # (auto) 1.4 10 ^3/uL (0.4-5.4); Lymphocytes % (auto) 30.2 % (10.0-50.0); Mean Corpuscular Hemoglobin 21.5 pg (28.0-32.0); Mean Corpuscular Hgb Conc. 30.8 g/dL (32.0-36.0); Mean Corpuscular Volume 69.6 fL (80.0-100.0); Monocytes # (auto) 0.4 10 ^3/uL (0-1.3); Neutrophils # (auto) 2.6 10 ^3/uL (1.6-8.6); Neutrophils % (auto) 58.5 % (37.0-80.0); Nucleated Red Blood Cells % 0.3 %; Platelet Count (auto) 317 10^3/uL (140-450); Red Blood Cells 3.89 10^6/uL (4.0-5.20); White Blood Cell 4.5 10^3/uL (4.4-10.8)
[2024-08-08 07:18] LABS: Red Cell Distribution Width 23.6 % (11.8-14.3)
[2024-08-08] MEDS: POLYETHYLENE GLYCOL 17 GM PWDR PO STA (14:35)
[2024-08-08] MEDS ORDERED: SUCR1TAB PO (14:37)
[2024-08-08] MEDS ORDERED: PANT40TA2 PO (14:37)
--- NOTE | 2024-08-08 14:39 | DVHDS2 ---
Discharge Summary Date of Admission August 06, 2024 at 22:26 Date of Discharge: August 08, 2024 Labs/Diagnostic Data: Laboratory Results Test 08/08/24 05:29 08/07/24 13:18 08/07/24 05:20 08/07/24 02:05 White Blood Count 4.5 10^3/uL (4.4-10.8) Red Blood Count 3.89 10^6/uL (4.0-5.20) Hemoglobin 8.4 g/dL (12.2-16.2) Hematocrit 27.1 % (36.0-46.0) Mean Corpuscular Volume 69.6 fL (80.0-100.0) Mean Corpuscular Hemoglobin 21.5 pg (28.0-32.0) Mean Corpuscular Hemoglobin Concent 30.8 g/dL (32.0-36.0) Red Cell Distribution Width 23.6 % (11.8-14.3) Platelet Count 317 10^3/uL (140-450) Mean Platelet Volume 8.3 fL (6.9-10.8) Neutrophils (%) (Auto) 58.5 % (37.0-80.0) Lymphocytes (%) (Auto) 30.2 % (10.0-50.0) Monocytes (%) (Auto) 8.0 % (0.0-12.0) Eosinophils (%) (Auto) 2.3 % (0.0-7.0) Basophils (%) (Auto) 1.0 % (0.0-2.0) Neutrophils # (Auto) 2.6 10 ^3/uL (1.6-8.6) Lymphocytes # (Auto) 1.4 10 ^3/uL (0.4-5.4) Monocytes # (Auto) 0.4 10 ^3/uL (0-1.3) Eosinophils # (Auto) 0.1 10 ^3/uL (0-0.8) Basophils # (Auto) 0 10 ^3/uL (0-0.2) Nucleated Red Blood Cells 0.3 % Stool Occult Blood Negative (Negative) Stool Occult Blood Sample #3 (Negative) Stool for White Cells None seen Platelet Estimate Adequate Hypochromasia (manual) Marked Anisocytosis (manual) Slight Microcytosis Marked Sodium Level 140 mmol/L (136-145) Potassium Level 4.0 mmol/L (3.5-5.1) Chloride Level 105 mmol/L (98-107) Carbon Dioxide Level 23 mmol/L (20-31) Anion Gap 12 (5-15) Blood Urea Nitrogen 17 mg/dL (9-23) Creatinine 1.14 mg/dL (0.550-1.02) Glomerular Filtration Rate Calc 51 mL/min (>90) BUN/Creatinine Ratio 14.9 (10.0-20.0) Serum Glucose 139 mg/dL (74-106) Calcium Level 10.2 mg/dL (8.7-10.4) Total Bilirubin 0.4 mg/dL (0.2-1.0) Aspartate Amino Transferase (AST) 24 U/L (13-40) Alanine Aminotransferase (ALT) 19 U/L (7-40) Alkaline Phosphatase 78 U/L (46-116) Total Protein 7.1 g/dL (5.7-8.2) Albumin 4.3 g/dL (3.2-4.8) Test 08/06/24 19:47 08/06/24 00:00 Erythrocyte Sedimentation Rate 84 mm/hr (0-20) Prothrombin Time 10.6 sec (9.3-11.8) Prothrombin Time INR 1.00 (0.9-1.15) Activated Partial Thromboplast Time 23.2 SEC (24.5-34.5) Hemoglobin A1c 5.8 % A1C (<5.7) Iron Level 19 ug/dL (50-170) Total Iron Binding Capacity 460 ug/dL (250-425) Percent Iron Saturation 4.1 % (15-50) Ferritin 12.5 ng/mL (10-291) C-Reactive Protein High Sensitivity 2.27 mg/dL (<1.0) B-Type Natriuretic Peptide 36.55 pg/mL (0-100) Vitamin B12 Level 1231 pg/mL (211-911) Thyroid Stimulating Hormone (TSH) 2.92 uIU/mL (0.55-4.78) Urine Color Light-yellow (Yellow) Urine Clarity Clear (Clear) Urine pH 7.0 (5.0-9.0) Urine Specific [place] 1.015 (1.001-1.035) Urine Protein Negative (Negative) Urine Ketones Negative (Negative) Urine Blood Negative /uL (Negative) Urine Nitrite Negative (Negative) Urine Bilirubin Negative (Negative) Urine Urobilinogen Normal mg/dL (Negative) Urine Leukocyte Esterase Trace /uL (Negative) Urine RBC <1 /hpf (0 - 4) Urine Microscopic WBC 10 /HPF (0-5) Urine Squamous Epithelial Cells Few /hpf (<5) Urine Bacteria Few /hpf (None Seen) Urine Glucose Normal mg/dL (Normal) Other Laboratory Tests 08/08/24 05:29 08/07/24 05:20 Brief Hx & Hospital Course: A 73-year-old female with history of peptic ulcer disease, prior GI bleed, rheumatoid arthritis, hypothyroidism, hypertension, and possible prior stroke was referred to the ED by her PCP, Dr. Shah, due to hemoglobin 6.7. Patient has received 1 unit of packed RBC has been as iron tablets. Patient does have known history of iron-deficiency anemia. Patient denies any hematemesis and melena. Patient's constipation has been resolved as well. Patient was seen by GI and cleared to be discharged on Protonix and Carafate. Patient is being discharged under stable condition. Condition at Discharge: Stable Final Diagnosis/Problems List A 73-year-old female with history of peptic ulcer disease, prior GI bleed, rheumatoid arthritis, hypothyroidism, hypertension, and possible prior stroke was referred to the ED by her PCP, Dr. Shah, due to hemoglobin 6.7. 1. Acute on chronic anemia without any active evidence of bleeding 2. Iron-deficiency anemia 3. Hypotension 4. Peptic ulcer disease 5. Rheumatoid arthritis 6. Hypotension Discharge Disposition: Home with Health Services SNF Discharge Will this Physician continue t: No Discharge Instruct/Medications Diet: Cardiac 2g Na,low cholest Activity: No Restrictions, As Tolerated Follow Up/Referral: F/U WITH pcp IN 1-2 WEEKS Medications: PROTONIX AND CARAFATE Discharge Statement: "Patient was advised to return to the ER or call 911 if any headaches, dizziness, shortness of breath, chest pain, abdominal pain, bleeding, fevers, or worsening of medical condition. Patient was counseled about treatment plan, medications, possible side effects, patientverbalized understanding. All questions were answered to the best of my ability. This discharge took greater then 30 minutes in planning, reviewing documentation, counseling the patient, and discussing with other team members." ASSESSMENT ASSESSMENT Assessment A 73-year-old female with history of peptic ulcer disease, prior GI bleed, rheumatoid arthritis, hypothyroidism, hypertension, and possible prior stroke was referred to the ED by her PCP, Dr. Shah, due to hemoglobin 6.7. 1. Acute on chronic anemia without any active evidence of bleeding 2. Iron-deficiency anemia 3. Hypotension 4. Peptic ulcer disease 5. Rheumatoid arthritis 6. Hypotension Date of Service: August 08, 2024 Billing Provider: VINEET DEL CASTILLO MD Common Visit Codes: [id number] DISCH DAY >30min, NOT BILLABLE VINEET DEL CASTILLO MD August 08, 2024 14:39
--- NOTE | 2024-08-08 23:20 | DVHPN2 ---
Progress Note - Dictate Date Seen: August 08, 2024 (Late entryPatient seen at 10:00 a.m.) Medical Necessity Reason Pt with a Central, PICC or Fol: No Subjective No new complaints Repeat hemoglobin 8.1 after 1 unit PRBC Stool for occult blood was negative and there were no WBC She denies any melena or bright red blood per rectum She has had multiple colonoscopy but no recent endoscopy Patient had a bowel movement today after Mira[place], no active GI bleeding reported vital signs Vital Sign Date Time Temp Pulse Resp B/P (MAP) Pulse Ox O2 Delivery O2 Flow Rate FiO2 08/08/24 16:36 98.6 74 16 137/85 (102) 98 98.6 08/08/24 08:00 Nasal Cannula* 2 28 Total Intake and Output 08/07/24 08/07/24 08/08/24 15:00 23:00 07:00 Intake Total 940 ml 220 ml Output Total 450 ml Balance 490 ml 220 ml objective HEENT pupils are reactive Neck is supple CV is S1-S2 regular rate and rhythm Respiratory are clear GI posterior bowel sound Extremity trace edema [employer]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 Laboratory Tests 08/08/24 05:29 08/07/24 05:20 Test 08/07/24 05:20 Range/Units Serum Glucose 139 H 74-106 mg/dL Problems(with codes): (1) Rheumatoid arthritis flare (2) Microcytic anemia (3) Symptomatic anemia (4) Acute renal injury (5) GI bleeding (6) Syncope (7) Hyperglycemia Prognosis Plan Advance diet as tolerated Patient is undergoing discharge planning for today She will follow up with her home health services which come twice a week Follow up with PCP and discuss follow up with a gastro group to decide if any further EGD or colonoscopy is required I did reccomend a repeat endoscopy in the near future Dietary Evaluation Review Recommendations by RD: Dietary education by RD Comments: 1) Encourage optimal PO intake. Discuss the benefits of vitamin C promoting iron absorption, while calcium inhibits iron absorption. 2) Advance to 60g CCHO 2g Na diet when medically feasible, pending [employer] approval 3) Refer to outpatient RD for weight management and prediabetes education 4) Follow-up with gastroenterology and rheumatology 5) Continue to monitor I&O, labs, and skin integrity Expected Outcomes/Goals: 1) appetite and labs to improve 2) diet to advance 3) f/u in 3-5 days Plan discussed with: Patient, Spouse SAROJ VINCENT MD August 08, 2024 23:19
[2024-08-09 10:07] LABS: Hepatitis B Surface Antigen Negative (Negative)
[2024-08-09 10:29] LABS: Hepatitis C Antibody Negative (Negative)
[2024-08-09 12:32] LABS: Folate (Folic Acid) 20.18 ng/mL (>5.38)
== END 2024-08-08 17:45 | disposition home health service (06) | DRG 811 ==
LOC: ER 18:55 → OVERFLOW 22:26 → WEST WING 22:28
PROVIDERS: ATTEND Emergency Medicine
PROC: 30233N1 Transfusion of Nonautologous Red Blood Cells into Peripheral Vein, Percutaneous Approach (ICD-10-PCS; principal; 2024-08-07)
DX: D50.9 Iron deficiency anemia, unspecified (principal); K27.4 Chronic or unspecified peptic ulcer, site unspecified, with hemorrhage; M06.9 Rheumatoid arthritis, unspecified; I10 Essential (primary) hypertension; E03.9 Hypothyroidism, unspecified; G62.9 Polyneuropathy, unspecified; I95.9 Hypotension, unspecified; R73.9 Hyperglycemia, unspecified; K59.00 Constipation, unspecified; Z88.0 Allergy status to penicillin; Z88.2 Allergy status to sulfonamides; Z79.82 Long term (current) use of aspirin; Z79.899 Other long term (current) drug therapy; Z87.11 Personal history of peptic ulcer disease; Z86.73 Personal history of transient ischemic attack (TIA), and cerebral infarction without residual deficits
CPT/HCPCS: 36415; 71045; 80053; 81001; 82270; 82607; 82728; 82746; 83036; 83540; 83550; 83880; 84443; 85014; 85018; 85025; 85048; 85610; 85652; 85730; 86141; 86803; 86850; 86900; 86901; 86920; 87045; 87086; 87088; 87186; 87340; 87427; 96374; 99291; G0378; J1756; J2470

== ENCOUNTER 2024-08-18 05:20 | Inpatient (IN) | payer OTHER, MEDICAID ==
[~2024-08-18] VITALS: Ht 157.5 cm; Wt 58.8 kg
[~2024-08-18 05:20] MED LIST changes: -ASPI-543 PO; -CARV25TA55 PO; -LOSA-534 PO; +LOSA-535 PO; +PANT40TA2 PO; +SUCR1TAB PO
--- NOTE | 2024-08-18 06:44 | ED.PDOC ---
General HPI Comments 73 y.o female with PMHx of PUD, GI bleed and HTN, sent in by urgent care for higher level of care s/p k. pneumoniae diagnose. Patient complains of a 4 day history of dysuria, lower back pain, and a generalized headache. Patient denies any nausea, vomiting, diarrhea, fever, chills, chest pain or SOB. Patient is not on antibiotics at this time. Chief Complaint: Urinary Time Seen by MD: 06:26 Primary Care Provider: STACEY Reviewed notes: Nurses Notes, Medications, Allergies Allergies: Coded Allergies: Penicillins (Verified Allergy, Unknown, 08/06/24) Sulfa Antibiotics (Verified Allergy, Unknown, 11/06/22) Home Meds Active Scripts Sucralfate (Sucralfate) 1 Gm Tab, 1 GM PO BID for 30 Days, #60 TAB Prov:VINEET DEL CASTILLO MD 08/08/24 Pantoprazole Sodium Sesquihydr (Protonix) 40 Mg Tab, 40 MG PO DAILY, #30 TAB Prov:VINEET DEL CASTILLO MD 08/08/24 Reported Medications Losartan Potassium (Losartan Potassium) 100 Mg Tab, 100 MG PO DAILY for 30 Days, MG 08/07/24 Omeprazole (Gnp Omeprazole) 20 Mg Tab, 40 MG PO, TAB 11/07/22 Hydroxychloroquine Sulfate (Hydroxychloroquine Sulfat) 200 Mg Tab, 200 MG PO, MG 11/07/22 Gabapentin (Gabapentin) 300 Mg Cap, 300 MG PO, MG 11/07/22 Levothyroxine Sodium (Levothyroxine Sodium) 50 Mcg Tab, 50 MCG PO QAM for 30 Days, MCG 11/07/22 Information Source: Patient Mode of Arrival: Wheelchair Severity: Moderate Timing: Days (4) Duration: Since onset Onset: Spontaneous Symptoms: Dysuria History of: UTI associated signs and symptoms: Dysuria Past Medical History PAST MEDICAL HISTORY: HTN, PUD Surgical History: Denies all surgeries FIRE ALARM TECHNICIAN History: Denies all FIRE ALARM TECHNICIAN Hx Family History Family History: Reviewed,noncontributory to illness Social History Smoker: Non-Smoker Alcohol: Denies ETOH Use Drugs: Denies Drug Use Lives In: Home Constitutional: denies: chills, diaphoresis, fatigue, fever, malaise, sweats, weakness, others EENTM: denies: blurred vision, double vision, ear bleeding, ear discharge, ear drainage, ear pain, ear ringing, eye pain, eye redness, hearing loss, mouth pain, mouth swelling, nasal discharge, nose bleeding, nose congestion, nose pain, photophobia, tearing, throat pain, throat swelling, voice changes, others Respiratory: denies: cough, hemoptysis, orthopnea, SOB at rest, shortness of breath, SOB with excertion, stridor, wheezing, others Cardiovascular: denies: chest pain, dizzy spells, diaphoresis, Dyspnea on e xertion, edema, irregular heart beat, left arm pain, lightheadedness, palpitations, PND, syncope, others Gastrointestinal: denies: abdomen distended, abdominal pain, blood streaked bowels, constipated, diarrhea, dysphagia, difficulty swallowing, hematemesis, melena, nausea, poor appetite, poor fluid intake, rectal bleeding, rectal pain, vomiting, others Genitourinary: reports: burning, dysuria; denies: abnormal vagina bleeding, dyspareunia, flank pain, frequency, hematuria, incontinence, pain, , vagina discharge, urgency, others Neurological: reports: headache; denies: dizziness, fainting, left sided numbness, left sided weakness, numbness, paresthesia, pre-existing deficit, right sided numbness, right sided weakness, seizure, speech problems, tingling, tremors, weakness, others Musculoskeletal: reports: back pain; denies: gout, joint pain, joint swelling, muscle pain, muscle stiffness, neck pain, others Integumetry: denies: bruises, change in color, change in hair/nails, dryness, laceration, lesions, lumps, rash, wounds, others Allergic/Immunocompromised: denies: Difficulty Healing, Frequent Infections, Hives, Itching, others Hematologic/Lymphatic: denies: anemia, blood clots, easy bleeding, easy bruising, swollen glands, others Endocrine: denies: excessive hunger, excessive sweating, excessive thirst, excessive urination, flushing, intolerance to cold, intolerance to heat, unexplained weight gain, unexplained weight loss, others Psychiatric: denies: anxiety, bipolar disorder, depression, hopeless, panic disorder, schizophrenia, sleepless, suicidal, others All Other Systems: Reviewed and Negative Physical Exam General Appearance: Moderate Distress HEENT: Normal ENT Inspection, Pharynx Normal, TMs Normal Neck: Full Range of Motion, Non-Tender, Normal, Normal Inspection Respiratory: Chest Non-Tender, Lungs Clear, No Accessory Muscle Use, No Respiratory Distress, Normal Breath Sounds Cardiovascular: No Edema, No JVD, No Murmur, No Gallop, Normal Peripheral Pulses, Regular Rate/Rhythm Breast Exam: Deferred Gastrointestinal: No Organomegaly, Non Tender, No Pulsatile Mass, Normal Bowel Sounds, Soft Genitalia: Deferred Pelvic: Deferred Rectal: Deferred Extremities: No calf tenderness, Normal capillary refill, Normal inspection, Normal range of motion, Non-tender, No pedal edema Musculoskeletal : Apperance: Normal Neurologic: Alert, teaching pastor II-XII nml as Tested, No Motor Deficits, Normal Affect, Normal Mood, No Sensory Deficits Cerebellar Function: NOT DONE Reflexes: NOT DONE Skin: Dry, Normal Color, Warm Peripheral Pulses: 3+ Radial (R), 3+ Radial (L) Lymphatic: No Adenopathy Was a procedure done? Was a procedure done?: No Differential Diagnosis Kidney stone (Female): Musculoskeletal pain, Urinary obstruction, Urolithiasis Urinary Problem (Female): Pyelonephritis, Urolithiasis, UTI X-Ray, Labs, Meds, VS Vital Signs Date Time Temp Pulse Resp B/P (MAP) Pulse Ox O2 Delivery O2 Flow Rate FiO2 08/18/24 07:37 87 16 95 Room Air* 0 21 08/18/24 07:37 97.8 87 16 143/70 (94) 95 97.8 08/18/24 05:37 98.0 80 18 149/68 (95) 96 98.0 Lab Test 08/18/24 06:56 08/18/24 06:46 Range/Units White Blood Count 5.7 4.4-10.8 10^3/uL Red Blood Count 4.34 4.0-5.20 10^6/uL Hemoglobin 9.6 L 12.2-16.2 g/dL Hematocrit 30.6 L 36.0-46.0 % Mean Corpuscular Volume 70.4 L 80.0-100.0 fL Mean Corpuscular Hemoglobin 22.1 L 28.0-32.0 pg Mean Corpuscular Hemoglobin Concent 31.4 L 32.0-36.0 g/dL Red Cell Distribution Width 27.1 H 11.8-14.3 % Platelet Count 254 140-450 10^3/uL Mean Platelet Volume 8.9 6.9-10.8 fL Neutrophils (%) (Auto) 62.1 37.0-80.0 % Lymphocytes (%) (Auto) 23.9 10.0-50.0 % Monocytes (%) (Auto) 8.2 0.0-12.0 % Eosinophils (%) (Auto) 2.5 0.0-7.0 % Basophils (%) (Auto) 3.3 H 0.0-2.0 % Neutrophils # (Auto) 3.5 1.6-8.6 10 ^3/uL Lymphocytes # (Auto) 1.4 0.4-5.4 10 ^3/uL Monocytes # (Auto) 0.5 0-1.3 10 ^3/uL Eosinophils # (Auto) 0.1 0-0.8 10 ^3/uL Basophils # (Auto) 0.2 0-0.2 10 ^3/uL Nucleated Red Blood Cells 0.1 % Sodium Level 142 136-145 mmol/L Potassium Level 3.7 3.5-5.1 mmol/L Chloride Level 106 98-107 mmol/L Carbon Dioxide Level 27 20-31 mmol/L Anion Gap 9 5-15 Blood Urea Nitrogen 19 9-23 mg/dL Creatinine 1.14 H 0.550-1.02 mg/dL Glomerular Filtration Rate Calc 51 >90 mL/min BUN/Creatinine Ratio 16.7 10.0-20.0 Serum Glucose 109 H 74-106 mg/dL Calcium Level 11.0 H 8.7-10.4 mg/dL Urine Color Colorless Yellow Urine Clarity Clear Clear Urine pH 6.5 5.0-9.0 Urine Specific [place] 1.011 1.001-1.035 Urine Protein Negative Negative Urine Ketones Negative Negative Urine Blood Negative Negative /uL Urine Nitrite Negative Negative Urine Bilirubin Negative Negative Urine Urobilinogen Normal Negative mg/dL Urine Leukocyte Esterase Negative Negative /uL Urine RBC None seen 0 - 4 /hpf Urine Microscopic WBC 2 0-5 /HPF Urine Squamous Epithelial Cells Few <5 /hpf Urine Bacteria Few H None Seen /hpf Urine Glucose Normal Normal mg/dL Patient alert. Complaining of urinary symptoms. Vitals stable. Answering questions. WBC within normal limits. Has anemia. Reviewed her her labs which shows pseudomembranes infection. She will be admitted for intravenous antibiotics for urosepsis. Explained to the family. Time of 1ST Reevaluation: 06:44 Reevaluation 1ST: Unchanged Patient Education/Counseling: Diagnosis, Treatment, Prognosis Family Education/Counseling: No Family Present Departure 1 Departure Time of Disposition: 08:09 Impression: Primary Impression: Sepsis due to urinary tract infection Additional Impression: Hypertension Qualified Codes: I10 - Essential (primary) hypertension Disposition: ADMITTED INPATIENT Admit to: Med Surg Condition: Guarded Critical Care Note Critical Care Time?: No Stability Stability form required: No I personally scribed for LESLEY HARDWICK MD ([email or web address]) on 08/18/24 at 06:44. Electronically submitted by Maryan Escudero ([facility]). LESLEY HARDWICK MD Aug 18, 2024 06:44
[2024-08-18 07:16] LABS: Urine Bacteria FEW /hpf (None Seen); Urine Blood Negative /uL (Negative); Urine Clarity Clear (Clear); Urine Color Colorless (Yellow); Urine Protein, UAD Negative (Negative); Urine Specific Gravity 1.011 (1.001-1.035); Urine Squamous Epithelial Cell FEW /hpf (<5); Urine Urobilinogen Normal (Negative); Urine WBC 2 /HPF (0-5); Urine pH 6.5 (5.0-9.0)
[2024-08-18 07:18] LABS: Eosinophils # (auto) 0.1 10 ^3/uL (0-0.8); Hemoglobin 9.6 g/dL (12.2-16.2); Mean Corpuscular Volume 70.4 fL (80.0-100.0); Monocytes # (auto) 0.5 10 ^3/uL (0-1.3); Platelet Count (auto) 254 10^3/uL (140-450)
[2024-08-18 07:22] LABS: Basophils # (auto) 0.2 10 ^3/uL (0-0.2); Basophils % (auto) 3.3 % (0.0-2.0); Eosinophils % (auto) 2.5 % (0.0-7.0); Hematocrit 30.6 % (36.0-46.0); Lymphocytes # (auto) 1.4 10 ^3/uL (0.4-5.4); Lymphocytes % (auto) 23.9 % (10.0-50.0); Mean Corpuscular Hemoglobin 22.1 pg (28.0-32.0); Mean Corpuscular Hgb Conc. 31.4 g/dL (32.0-36.0); Monocytes % (auto) 8.2 % (0.0-12.0); Neutrophils # (auto) 3.5 10 ^3/uL (1.6-8.6); Neutrophils % (auto) 62.1 % (37.0-80.0); Nucleated Red Blood Cells % 0.1 %; Red Blood Cells 4.34 10^6/uL (4.0-5.20); Red Cell Distribution Width 27.1 % (11.8-14.3); White Blood Cell 5.7 10^3/uL (4.4-10.8)
[2024-08-18 07:24] LABS: Chloride 106 mmol/L (98-107); Potassium 3.7 mmol/L (3.5-5.1); Sodium 142 mmol/L (136-145)
[2024-08-18 07:25] LABS: Anion Gap 9 (5-15); Carbon Dioxide 27 mmol/L (20-31)
[2024-08-18 07:30] LABS: BUN/Creatinine Ratio 16.7 (10.0-20.0); Blood Urea Nitrogen 19 mg/dL (9-23)
[2024-08-18 07:31] LABS: Glucose 109 mg/dL (74-106)
[2024-08-18 07:37] VITALS: PULSE 87; RESP 16; O2SAT 95
[2024-08-18] MEDS: cefTRIAXone 1GM/50ML D5W 50 ML IV ONE (08:15)
[2024-08-18] MEDS ORDERED: NITROGLYCERIN 0.4 MG SL TAB SL PRN (10:00)
[2024-08-18] MEDS ORDERED: MORPHINE SULFATE INJ 2 MG/ml SYRG IV PRN (10:00)
[2024-08-18] MEDS ORDERED: ONDANSETRON HCL 4 MG/2 ML VIAL IV PRN (10:00)
--- NOTE | 2024-08-18 10:00 | DVHHP2 ---
History of Present Illness Reason for Visit: Urinary symptoms History of Present Illness Bridgett Mariee is a 73-year-old female with past medical history of hypertension, iron-deficiency anemia, hypothyroidism, peptic ulcer disease, GI bleed, rheumatoid arthritis, CVA with no hemiparesis, and left knee replacement who presents to the ED with urinary symptoms. Patient reports that she was at her doctor's office 4 days ago and was diagnosed with a UTI and was told to follow up today in the hospital due to her urine culture results. Patient's Franko is at the chair side and has a report of the susceptible medications to the specific organism that was found. Patient states that she has been having dysuria, urgency, and frequency for the past several days. Patient's reported that the CVA caused some vision change which occurred in 2013. Patient denies any chest pain, shortness of breath, fever, chills, abdominal pain, nausea, vomiting, diarrhea, lightheadedness, weakness, or dizziness. Cardiovascular: HTN PRUNER: CVA Endocrine: Hypothyroidism Past Medical History Iron-deficiency anemia PUD GI bleed Rheumatoid arthritis Past Surgical History: Other (Left knee replacement) Smoke: No ALCOHOL: none Drugs: None Lives: with Family Domestic Violence: Neg Review of Systems Genitourinary: Dysuria, Frequency, Other (Urgency) Allergies: Coded Allergies: Penicillins (Verified Allergy, Unknown, 08/06/24) Sulfa Antibiotics (Verified Allergy, Unknown, 11/06/22) Medications Current Medications Medications Dose Ordered Sig/Karen Route Start Time Stop Time Status Last Admin Dose Admin Ertapenem 1 gm/ Sodium Chloride 50 ml @ 100 mls/hr DAILY IV 08/18/24 10:00 UNV Acetaminophen/ Hydrocodone Bitart 1 tab Q4HP PRN PO 08/18/24 10:00 UNV Ondansetron HCl 4 mg Q4HP PRN IV 08/18/24 10:00 UNV Acetaminophen 650 mg Q6HP PRN PO 08/18/24 10:00 UNV Nitroglycerin 0.4 mg Q5MINP PRN SL 08/18/24 10:00 UNV Morphine Sulfate 2 mg Q30M PRN IV 08/18/24 10:00 UNV Diphenhydramine HCl 25 mg Q4HP PRN IV 08/18/24 10:00 UNV Enoxaparin Sodium 40 mg DAILY SC 08/18/24 10:00 UNV Exam Vital Signs Vital Signs Date Time Temp Pulse Resp B/P (MAP) Pulse Ox O2 Delivery O2 Flow Rate FiO2 08/18/24 07:37 87 16 95 Room Air* 0 21 08/18/24 07:37 97.8 143/70 (94) 97.8 General Appearance: Alert, Oriented X3, Cooperative, No acute distress HEENT: Atraumatic, PERRLA, EOMI, Mucous membr. moist/pink Respiratory: Clear to auscultation, Normal air movement Cardiovascular: Regular rate, Normal S1, Normal S2, No murmurs Abdominal: Normal bowel sounds, Soft Extremities: No cyanosis, Normal pulses Neuro: Normal speech, Normal tone, Sensation intact Psych/Mental Status: Mental status NL, Mood NL Labs/Xrays Labs Test 08/18/24 06:56 08/18/24 06:46 Range/Units White Blood Count 5.7 4.4-10.8 10^3/uL Red Blood Count 4.34 4.0-5.20 10^6/uL Hemoglobin 9.6 L 12.2-16.2 g/dL Hematocrit 30.6 L 36.0-46.0 % Mean Corpuscular Volume 70.4 L 80.0-100.0 fL Mean Corpuscular Hemoglobin 22.1 L 28.0-32.0 pg Mean Corpuscular Hemoglobin Concent 31.4 L 32.0-36.0 g/dL Red Cell Distribution Width 27.1 H 11.8-14.3 % Platelet Count 254 140-450 10^3/uL Mean Platelet Volume 8.9 6.9-10.8 fL Neutrophils (%) (Auto) 62.1 37.0-80.0 % Lymphocytes (%) (Auto) 23.9 10.0-50.0 % Monocytes (%) (Auto) 8.2 0.0-12.0 % Eosinophils (%) (Auto) 2.5 0.0-7.0 % Basophils (%) (Auto) 3.3 H 0.0-2.0 % Neutrophils # (Auto) 3.5 1.6-8.6 10 ^3/uL Lymphocytes # (Auto) 1.4 0.4-5.4 10 ^3/uL Monocytes # (Auto) 0.5 0-1.3 10 ^3/uL Eosinophils # (Auto) 0.1 0-0.8 10 ^3/uL Basophils # (Auto) 0.2 0-0.2 10 ^3/uL Nucleated Red Blood Cells 0.1 % Sodium Level 142 136-145 mmol/L Potassium Level 3.7 3.5-5.1 mmol/L Chloride Level 106 98-107 mmol/L Carbon Dioxide Level 27 20-31 mmol/L Anion Gap 9 5-15 Blood Urea Nitrogen 19 9-23 mg/dL Creatinine 1.14 H 0.550-1.02 mg/dL Glomerular Filtration Rate Calc 51 >90 mL/min BUN/Creatinine Ratio 16.7 10.0-20.0 Serum Glucose 109 H 74-106 mg/dL Calcium Level 11.0 H 8.7-10.4 mg/dL Urine Color Colorless Yellow Urine Clarity Clear Clear Urine pH 6.5 5.0-9.0 Urine Specific [place] 1.011 1.001-1.035 Urine Protein Negative Negative Urine Ketones Negative Negative Urine Blood Negative Negative /uL Urine Nitrite Negative Negative Urine Bilirubin Negative Negative Urine Urobilinogen Normal Negative mg/dL Urine Leukocyte Esterase Negative Negative /uL Urine RBC None seen 0 - 4 /hpf Urine Microscopic WBC 2 0-5 /HPF Urine Squamous Epithelial Cells Few <5 /hpf Urine Bacteria Few H None Seen /hpf Urine Glucose Normal Normal mg/dL Assessment/Plan Assessment/Plan Assessment Dysuria likely due to acute cystitis Anemia RENETTA Hypertension History of hypertension History of iron-deficiency anemia History of hypothyroidism History of PUD History of GI bleed History of rheumatoid arthritis History of stroke with no hemiparesis History of left knee replacement Plan Admit to [facility] UA noted IV antibiotics-ertapenem due to susceptibility Antiemetics Pain management Diet CT abdomen and pelvis ordered Home medications reconciled DVT prophylaxis-Lovenox PUD prophylaxis-PPIs Discussed plan of care with patient, patient's spouse, and nurse Plan discussed with: Patient, Spouse My Orders Orders - PIPPA FINK Procedure Category Date Status Time Ertapenem Sod Inj PHA 08/18/24 Logged (Invanz) 10:00 Ct Ab Pel Wo Con-No CT 08/18/24 Logged Oral Or Iv 09:49 Admit ADMIT 08/18/24 Transmitted 09:49 Allergies JESSENIA 08/18/24 In Process 09:49 Code Status CODE 08/18/24 Transmitted 09:49 Hydrocodone-Acet PHA 08/18/24 Logged 5/325mg Tab ([place] 10:00 Ondansetron Hcl PHA 08/18/24 Logged (Zofran) 10:00 Complete Blood Count LAB 08/19/24 Verified 04:00 Comprehensive LAB 08/19/24 Verified Metabolic Panel 04:00 Cardiac DIET 08/18/24 Transmitted Diet-2gna,Lofat,Lochol Lunch Acetaminophen Tablet PHA 08/18/24 Logged (Tylenol Tablet) 10:00 Nitroglycerin PHA 08/18/24 Logged Sublingual (Ntrostat 10:00 Morphine Sulfate PHA 08/18/24 Logged Injection 10:00 Stat Ekg For Chest [facility] 08/18/24 In Process Pain 09:49 Notify Of Changes [facility] 08/18/24 In Process From Base 09:49 Flotation Tender Helper For [facility] 08/18/24 In Process 24 Hours 09:49 Emergency Dysrhythmia [facility] 08/18/24 In Process Protocol 09:49 Rhythm Strips Once [facility] 08/18/24 In Process Every Shift 09:49 Oxygen By Nasal RT 08/18/24 Transmitted Cannula 09:49 Diphenhdramine PHA 08/18/24 Logged Injection (Benadryl 10:00 Enoxaparin Sodium PHA 08/18/24 Logged (Lovenox) 10:00 Gabapentin Capsule PHA 08/18/24 Verified (Neurontin Capsule) 14:00 Hydroxychloroquine PHA 08/18/24 Verified Tablet (Plaquenil Tab 14:00 Levothyroxine Tablet PHA 08/19/24 Verified (Synthroid Tablet) 07:00 Pantoprazole Tablet PHA 08/18/24 Verified (Protonix Tablet) 10:00 Sucralfate Tab PHA 08/18/24 Verified (Carafate Tab) 10:00 (Nf) Losartan PHA 08/18/24 Verified Potassium 10:00 Date of Service: Aug 18, 2024 Billing Provider: PIPPA FINK Common Visit Codes: [id number] INP/OBS CARE (HIGH) PIPPA FINK Aug 18, 2024 10:00
--- NOTE | 2024-08-18 10:40 | DVH ---
CT CT AB PEL WO CON-NO ORAL OR IV INDICATION: pain EXAM DATE: 08/18/2024 09:54 AM COMPARISON: CT CT AB PEL WO CON-NO ORAL OR IV on DOS: 11/06/22 RADIATION DOSE: CTDIvol: 22.15 mGy, DLP: 1208.47 mGy*cm PROCEDURE: Helical CT images were obtained of the abdomen and pelvis without IV contrast Sagittal and coronal reconstructions are provided. ORAL CONTRAST: None. ADDITIONAL IMAGES / REFORMATS: None All C T scans at this medical facility are performed using dose modulation techniques as appropriate to a p erformed exam including the following: Automated exposure control was utilized; adjustment of the MA and/or KV according to patient size; and use of iterative reconstruction technique. FINDINGS: LUNG BASE: Normal. LIVER: Normal. GALLBLADDER AND BILIARY TREE: Large gallstone . No intra- or extrahepatic biliary ductal dilation. PANCREAS: Normal. SPLEEN: Normal. BOWEL: Stomach containing hiatal hernia. No small bowel dilation. Normal appendix. ADRENALS: Normal. KIDNEYS AND URETER: Normal. BLADDER: Normal. REPRODUCTIVE ORGANS: Absent. LYMPH NODES:No lymphadenopathy. PERITONEUM: No ascites or free air. No other fluid collection. VESSELS: Scattered atherosclerotic calcifications are noted. RETROPERITONEUM: Normal. ABDOMINAL WALL: Normal. BONES: Scattered osseous degenerative changes are noted. Mild anterolisthesis of L5-S1. IMPRESSION: No acute intraabdominal abnormality. Large gallstone. Stomach containing hiatal hernia.
[2024-08-18] MEDS: SUCRALFATE 1 GM TAB PO SCH (11:59)
[2024-08-18] MEDS: PANTOPRAZOLE 40 MG TAB PO SCH (11:59)
[2024-08-18] MEDS: ENOXAPARIN SOD 40 MG/0.4 ML SYRINGE SC SCH (12:01)
[2024-08-18] MEDS: ERTAPENEM SOD INJ 1 GM in SODIUM CHL 0.9% 50 ML IV SCH (13:28)
[2024-08-18] MEDS: HYDROcodone-ACET 5/325MG TAB PO PRN (15:09)
[2024-08-18] MEDS: hydrOXYchloroQUINE SULFATE 200 MG TAB PO SCH (15:10)
[2024-08-18] MEDS: GABAPENTIN 300 MG CAP PO SCH (15:10)
[2024-08-18 17:52] VITALS: PULSE 90; RESP 18; O2SAT 97
[2024-08-18 18:07] VITALS: BP 161/86; PULSE 90; RESP 18; TEMP 98.1; O2SAT 97
[2024-08-18 21:00] VITALS: BP 153/83; PULSE 91; RESP 18; TEMP 97.7; O2SAT 96
[2024-08-18] MEDS: diphenhdrAMINE HCL 50 MG/1 ML VL IV PRN (22:05)
[2024-08-19] VITALS (7 sets, daily range): BP systolic 122–147; BP diastolic 71–91; PULSE 79–114; RESP 16–20; TEMP 97.1–98; O2SAT 95–99
[2024-08-19 05:29] LABS: Eosinophils # (auto) 0.2 10 ^3/uL (0-0.8); Hemoglobin 9.4 g/dL (12.2-16.2); Lymphocytes # (auto) 1.2 10 ^3/uL (0.4-5.4); Nucleated Red Blood Cells % 0.2 %; Red Blood Cells 4.28 10^6/uL (4.0-5.20)
[2024-08-19 05:31] LABS: Basophils # (auto) 0.2 10 ^3/uL (0-0.2); Basophils % (auto) 5.6 % (0.0-2.0); Eosinophils % (auto) 4.1 % (0.0-7.0); Hematocrit 29.9 % (36.0-46.0); Lymphocytes % (auto) 27.3 % (10.0-50.0); Mean Corpuscular Hgb Conc. 31.5 g/dL (32.0-36.0); Monocytes # (auto) 0.3 10 ^3/uL (0-1.3); Monocytes % (auto) 7.8 % (0.0-12.0); Neutrophils # (auto) 2.4 10 ^3/uL (1.6-8.6); Neutrophils % (auto) 55.2 % (37.0-80.0); Platelet Count (auto) 246 10^3/uL (140-450); Red Cell Distribution Width 27.6 % (11.8-14.3); White Blood Cell 4.4 10^3/uL (4.4-10.8)
[2024-08-19 05:35] LABS: Alanine Aminotransferase 15 U/L (7-40); Albumin 4.2 g/dL (3.2-4.8); Alkaline Phosphatase 74 U/L (46-116); Anion Gap 12 (5-15); Aspartate Aminotransferase 38 U/L (13-40); BUN/Creatinine Ratio 13.5 (10.0-20.0); Blood Urea Nitrogen 14 mg/dL (9-23); Calcium 9.8 mg/dL (8.7-10.4); Carbon Dioxide 25 mmol/L (20-31); Chloride 104 mmol/L (98-107); Sodium 141 mmol/L (136-145); Total Protein 7.1 g/dL (5.7-8.2)
[2024-08-19] MEDS: LEVOTHYROXINE SODIUM 50 MCG TAB PO SCH (05:35)
[2024-08-19 05:36] LABS: Bilirubin, Total 0.6 mg/dL (0.2-1.0)
[2024-08-19 05:42] LABS: Glucose 110 mg/dL (74-106); Potassium 3.2 mmol/L (3.5-5.1)
[2024-08-19 06:46] LABS: Anisocytosis Slight; Hypochromia Slight; Platelet Estimate Adequate; Stomatocytes Few
[2024-08-19] MEDS: LOSARTAN POTASSIUM 50 MG TAB PO SCH (09:44)
--- NOTE | 2024-08-19 12:44 | DVHPN2 ---
Reviewed: Care Plan, H&P, Labs, Medications, Previous Orders, Radiology Changes from previous H/P or p: No Changes Genitourinary: Dysuria, Frequency, Other (Urgency) Objective Vitals Vital Signs Date Time Temp Pulse Resp B/P (MAP) Pulse Ox O2 Delivery O2 Flow Rate FiO2 08/19/24 09:44 141/91 08/19/24 09:00 97.9 86 17 97 97.9 08/19/24 08:13 Room Air* 0 21 Intake/Output Intake and Output 08/19/24 07:00 Intake Total 450 ml Balance 450 ml Intake Oral 400 ml IV Total 50 ml # Voids 3 Medications Current Medications Medications Dose Ordered Sig/Karen Route Start Time Stop Time Status Last Admin Dose Admin Ertapenem 1 gm/ Sodium Chloride 50 ml @ 100 mls/hr DAILY IV 08/18/24 10:00 08/19/24 09:57 100 MLS/HR Acetaminophen/ Hydrocodone Bitart 1 tab Q4HP PRN PO 08/18/24 10:00 08/18/24 15:09 1 TAB Ondansetron HCl 4 mg Q4HP PRN IV 08/18/24 10:00 Acetaminophen 650 mg Q6HP PRN PO 08/18/24 10:00 Nitroglycerin 0.4 mg Q5MINP PRN SL 08/18/24 10:00 Morphine Sulfate 2 mg Q30M PRN IV 08/18/24 10:00 Diphenhydramine HCl 25 mg Q4HP PRN IV 08/18/24 10:00 08/18/24 22:05 25 MG Enoxaparin Sodium 40 mg DAILY SC 08/18/24 10:00 08/19/24 09:45 40 MG Gabapentin 300 mg TID PO 08/18/24 14:00 08/19/24 05:05 300 MG Hydroxychloroquine Sulfate 200 mg TID PO 08/18/24 14:00 08/19/24 05:05 200 MG Levothyroxine Sodium 50 mcg QAM PO 08/19/24 07:00 08/19/24 05:35 50 MCG Pantoprazole Sodium 40 mg DAILY PO 08/18/24 10:00 08/19/24 09:44 40 MG Sucralfate 1 gm BID PO 08/18/24 10:00 08/19/24 09:43 1 GM Losartan Potassium 100 mg DAILY PO 08/19/24 10:00 08/19/24 09:44 100 MG Laboratory Results Laboratory Tests 08/19/24 04:42 Chemistry Test 08/19/24 04:42 Albumin 4.2 g/dL (3.2-4.8) Calcium Level 9.8 mg/dL (8.7-10.4) Total Protein 7.1 g/dL (5.7-8.2) LFT Test 08/19/24 04:42 Alanine Aminotransferase (ALT) 15 U/L (7-40) Alkaline Phosphatase 74 U/L (46-116) Aspartate Amino Transferase (AST) 38 U/L (13-40) Total Bilirubin 0.6 mg/dL (0.2-1.0) Urinalysis Test 08/18/24 06:46 Urine Color Colorless (Yellow) Urine Clarity Clear (Clear) Urine pH 6.5 (5.0-9.0) Urine Specific [place] 1.011 (1.001-1.035) Urine Protein Negative (Negative) Urine Ketones Negative (Negative) Urine Blood Negative /uL (Negative) Urine Nitrite Negative (Negative) Urine Bilirubin Negative (Negative) Urine Urobilinogen Normal mg/dL (Negative) Urine Leukocyte Esterase Negative /uL (Negative) Urine RBC None seen /hpf (0 - 4) Urine Microscopic WBC 2 /HPF (0-5) Urine Squamous Epithelial Cells Few /hpf (<5) Urine Bacteria Few /hpf (None Seen) H Urine Glucose Normal mg/dL (Normal) Microbiology Microbiology Date/Time Source Procedure Growth Status 08/18/24 06:46 Voided Urine Urine Culture - Preliminary Resulted Labs and/or images reviewed: Labs reviewed by me, Image(s) reviewed by me Assessment/Plan Assessment/Plan Sepsis secondary to urinary tract infection urine cultures growing Gram-negative rods, continue Invanz until final result Chronic anemia Hypotension Hypothyroidism Peptic ulcer disease History of GI bleed Rheumatoid arthritis History of stroke with no residual deficits History of left knee replacement Moderate malnutrition Time spent 70 minutes Advanced care planning time 20 minutes Patient is full code Plan discussed with: Patient Date of Service: Aug 19, 2024 Billing Provider: WENCESLAO LOPEZ MD Common Visit Codes: [id number] CARE 30-74 MIN WENCESLAO LOPEZ MD Aug 19, 2024 12:44
[2024-08-19] MEDS: POTASSIUM EFFERVESENT TAB 25 MEQ PO ONE (14:29)
[2024-08-19] MEDS: LACTULOSE 20Gm/30ML SOLN PO ONE (16:59)
[2024-08-19] MEDS: DOCUSATE SOD 100 MG CAP PO SCH (21:33)
[2024-08-20 01:00] VITALS: BP_SYST 111; BP_SYST 169; BP_DIAS 72; BP_DIAS 95; PULSE 83; PULSE 99; RESP 17; RESP 19; TEMP 98; O2SAT 100; O2SAT 97
[2024-08-20 05:09] VITALS: BP 116/77; PULSE 100; RESP 17; TEMP 98.1; O2SAT 93
[2024-08-20 09:00] VITALS: BP 127/83; PULSE 86; RESP 18; TEMP 98; O2SAT 100
--- NOTE | 2024-08-20 10:06 | DVHPN2 ---
Reviewed: Care Plan, H&P, Labs, Medications, Previous Orders, Radiology Changes from previous H/P or p: No Changes Genitourinary: Dysuria, Frequency, Other (Urgency) Objective Vitals Vital Signs Date Time Temp Pulse Resp B/P (MAP) Pulse Ox O2 Delivery O2 Flow Rate FiO2 08/20/24 09:26 127/83 08/20/24 09:00 98.0 86 18 100 98.0 08/20/24 08:07 Room Air* 0 21 Intake/Output Intake and Output 08/20/24 07:00 Intake Total 1270 ml Output Total 400 ml Balance 870 ml Intake Oral 1220 ml IV Total 50 ml Output Urine Total 400 ml # Voids 1 # Bowel Movements 2 Medications Current Medications Medications Dose Ordered Sig/Karen Route Start Time Stop Time Status Last Admin Dose Admin Ertapenem 1 gm/ Sodium Chloride 50 ml @ 100 mls/hr DAILY IV 08/18/24 10:00 08/20/24 09:27 100 MLS/HR Acetaminophen/ Hydrocodone Bitart 1 tab Q4HP PRN PO 08/18/24 10:00 08/18/24 15:09 1 TAB Ondansetron HCl 4 mg Q4HP PRN IV 08/18/24 10:00 Acetaminophen 650 mg Q6HP PRN PO 08/18/24 10:00 Nitroglycerin 0.4 mg Q5MINP PRN SL 08/18/24 10:00 Morphine Sulfate 2 mg Q30M PRN IV 08/18/24 10:00 Diphenhydramine HCl 25 mg Q4HP PRN IV 08/18/24 10:00 08/18/24 22:05 25 MG Enoxaparin Sodium 40 mg DAILY SC 08/18/24 10:00 08/20/24 09:25 40 MG Gabapentin 300 mg TID PO 08/18/24 14:00 08/20/24 05:38 300 MG Hydroxychloroquine Sulfate 200 mg TID PO 08/18/24 14:00 08/20/24 05:38 200 MG Levothyroxine Sodium 50 mcg QAM PO 08/19/24 07:00 08/20/24 05:38 50 MCG Pantoprazole Sodium 40 mg DAILY PO 08/18/24 10:00 08/20/24 09:25 40 MG Sucralfate 1 gm BID PO 08/18/24 10:00 08/20/24 09:25 1 GM Losartan Potassium 100 mg DAILY PO 08/19/24 10:00 08/20/24 09:26 100 MG Docusate Sodium 100 mg BID PO 08/19/24 22:00 Laboratory Results Laboratory Tests 08/19/24 04:42 Urinalysis Test 08/18/24 06:46 Urine Color Colorless (Yellow) Urine Clarity Clear (Clear) Urine pH 6.5 (5.0-9.0) Urine Specific [place] 1.011 (1.001-1.035) Urine Protein Negative (Negative) Urine Ketones Negative (Negative) Urine Blood Negative /uL (Negative) Urine Nitrite Negative (Negative) Urine Bilirubin Negative (Negative) Urine Urobilinogen Normal mg/dL (Negative) Urine Leukocyte Esterase Negative /uL (Negative) Urine RBC None seen /hpf (0 - 4) Urine Microscopic WBC 2 /HPF (0-5) Urine Squamous Epithelial Cells Few /hpf (<5) Urine Bacteria Few /hpf (None Seen) H Urine Glucose Normal mg/dL (Normal) Microbiology Microbiology Date/Time Source Procedure Growth Status 08/18/24 18:25 Nose MRSA Screen - Final Complete 08/18/24 06:46 Voided Urine Urine Culture - Preliminary Resulted Labs and/or images reviewed: Labs reviewed by me, Image(s) reviewed by me Assessment/Plan Assessment/Plan Sepsis secondary to urinary tract infection urine cultures growing Gram-negative rods, continue Invanz until final result Chronic anemia Hypotension Hypothyroidism Peptic ulcer disease History of GI bleed Rheumatoid arthritis History of stroke with no residual deficits History of left knee replacement Moderate malnutrition Time spent [address] Shah Patient is full code Plan discussed with: Patient My Orders Orders - WENCESLAO LOPEZ MD Procedure Category Date Status Time Docusate Sodium PHA 08/19/24 In Process Capsule ([place] 22:00 Date of Service: Aug 20, 2024 Billing Provider: WENCESLAO LOPEZ MD Common Visit Codes: [id number] INP/OBS CARE(HIGH) WENCESLAO LOPEZ MD Aug 20, 2024 10:06
[2024-08-20 13:00] VITALS: BP 141/85; PULSE 83; RESP 17; TEMP 98.3; O2SAT 96
[2024-08-20 17:00] VITALS: BP 137/69; PULSE 91; RESP 17; TEMP 98.3; O2SAT 95
[2024-08-20 21:00] VITALS: BP 115/71; PULSE 110; RESP 19; TEMP 97.8; O2SAT 96
[2024-08-20] MEDS: ACETAMINOPHEN 325 MG TAB PO PRN (21:32)
[2024-08-21 01:00] VITALS: BP 125/66; PULSE 87; RESP 18; TEMP 98.8; O2SAT 97
[2024-08-21 04:53] VITALS: BP 112/69; PULSE 89; RESP 18; TEMP 97.8; O2SAT 97
[2024-08-21 09:00] VITALS: BP 126/72; PULSE 91; RESP 20; TEMP 98.7; O2SAT 95
--- NOTE | 2024-08-21 09:46 | DVHPN2 ---
Reviewed: Care Plan, H&P, Labs, Medications, Previous Orders, Radiology Changes from previous H/P or p: No Changes Genitourinary: Dysuria, Frequency, Other (Urgency) Objective Vitals Vital Signs Date Time Temp Pulse Resp B/P (MAP) Pulse Ox O2 Delivery O2 Flow Rate FiO2 08/21/24 09:18 126/72 08/21/24 04:53 97.8 89 18 97 97.8 08/20/24 20:00 Room Air* 0 21 Intake/Output Intake and Output 08/21/24 07:00 Intake Total 1470 ml Output Total 300 ml Balance 1170 ml Intake Oral 1420 ml IV Total 50 ml Output Urine Total 300 ml # Voids 4 # Bowel Movements 2 Medications Current Medications Medications Dose Ordered Sig/Karen Route Start Time Stop Time Status Last Admin Dose Admin Ertapenem 1 gm/ Sodium Chloride 50 ml @ 100 mls/hr DAILY IV 08/18/24 10:00 08/21/24 09:18 100 MLS/HR Acetaminophen/ Hydrocodone Bitart 1 tab Q4HP PRN PO 08/18/24 10:00 08/20/24 13:26 1 TAB Ondansetron HCl 4 mg Q4HP PRN IV 08/18/24 10:00 Acetaminophen 650 mg Q6HP PRN PO 08/18/24 10:00 08/20/24 21:32 650 MG Nitroglycerin 0.4 mg Q5MINP PRN SL 08/18/24 10:00 Morphine Sulfate 2 mg Q30M PRN IV 08/18/24 10:00 Diphenhydramine HCl 25 mg Q4HP PRN IV 08/18/24 10:00 08/18/24 22:05 25 MG Enoxaparin Sodium 40 mg DAILY SC 08/18/24 10:00 08/21/24 09:10 40 MG Gabapentin 300 mg TID PO 08/18/24 14:00 08/21/24 05:16 300 MG Hydroxychloroquine Sulfate 200 mg TID PO 08/18/24 14:00 08/21/24 05:16 200 MG Levothyroxine Sodium 50 mcg QAM PO 08/19/24 07:00 08/21/24 05:16 50 MCG Pantoprazole Sodium 40 mg DAILY PO 08/18/24 10:00 08/21/24 09:10 40 MG Sucralfate 1 gm BID PO 08/18/24 10:00 08/21/24 09:18 1 GM Losartan Potassium 100 mg DAILY PO 08/19/24 10:00 08/21/24 09:18 100 MG Docusate Sodium 100 mg BID PO 08/19/24 22:00 08/21/24 09:10 100 MG Laboratory Results Laboratory Tests 08/19/24 04:42 Urinalysis Test 08/18/24 06:46 Urine Color Colorless (Yellow) Urine Clarity Clear (Clear) Urine pH 6.5 (5.0-9.0) Urine Specific [place] 1.011 (1.001-1.035) Urine Protein Negative (Negative) Urine Ketones Negative (Negative) Urine Blood Negative /uL (Negative) Urine Nitrite Negative (Negative) Urine Bilirubin Negative (Negative) Urine Urobilinogen Normal mg/dL (Negative) Urine Leukocyte Esterase Negative /uL (Negative) Urine RBC None seen /hpf (0 - 4) Urine Microscopic WBC 2 /HPF (0-5) Urine Squamous Epithelial Cells Few /hpf (<5) Urine Bacteria Few /hpf (None Seen) H Urine Glucose Normal mg/dL (Normal) Microbiology Microbiology Date/Time Source Procedure Growth Status 08/18/24 18:25 Nose MRSA Screen - Final Complete 08/18/24 06:46 Voided Urine Urine Culture - Final Klebsiella pneumoniae - ESBL Complete Labs and/or images reviewed: Labs reviewed by me, Image(s) reviewed by me Assessment/Plan Assessment/Plan Sepsis secondary to urinary tract infection urine cultures growing ESBL Klebsiella pneumoniae, continue Invanz for 14 days Chronic anemia Hypertension Hypothyroidism Peptic ulcer disease History of GI bleed Rheumatoid arthritis History of stroke with no residual deficits History of left knee replacement Moderate malnutrition Time spent [address] Shah Patient is full code Frank[facility] at bedside [id number] Shala [phone] also at bedside and agreeable for discharge to [facility] facility for two weeks of IV antibiotics for complicated UTI Plan discussed with: Patient, Other (daughter in law) Date of Service: Aug 21, 2024 Billing Provider: WENCESLAO LOPEZ MD Common Visit Codes: [id number] INP/OBS CARE(HIGH) WENCESLAO LOPEZ MD Aug 21, 2024 09:46
--- NOTE | 2024-08-21 09:54 | DVHDS2 ---
Discharge Summary Date of Admission Aug 18, 2024 at 09:49 Date of Discharge: Aug 21, 2024 Admitting Diagnosis Generalized weakness Wounds: None Labs/Diagnostic Data: Laboratory Results Test 08/19/24 04:42 08/18/24 06:46 White Blood Count 4.4 10^3/uL (4.4-10.8) Red Blood Count 4.28 10^6/uL (4.0-5.20) Hemoglobin 9.4 g/dL (12.2-16.2) Hematocrit 29.9 % (36.0-46.0) Mean Corpuscular Volume 70.0 fL (80.0-100.0) Mean Corpuscular Hemoglobin 22.0 pg (28.0-32.0) Mean Corpuscular Hemoglobin Concent 31.5 g/dL (32.0-36.0) Red Cell Distribution Width 27.6 % (11.8-14.3) Platelet Count 246 10^3/uL (140-450) Mean Platelet Volume 8.6 fL (6.9-10.8) Neutrophils (%) (Auto) 55.2 % (37.0-80.0) Lymphocytes (%) (Auto) 27.3 % (10.0-50.0) Monocytes (%) (Auto) 7.8 % (0.0-12.0) Eosinophils (%) (Auto) 4.1 % (0.0-7.0) Basophils (%) (Auto) 5.6 % (0.0-2.0) Neutrophils # (Auto) 2.4 10 ^3/uL (1.6-8.6) Lymphocytes # (Auto) 1.2 10 ^3/uL (0.4-5.4) Monocytes # (Auto) 0.3 10 ^3/uL (0-1.3) Eosinophils # (Auto) 0.2 10 ^3/uL (0-0.8) Basophils # (Auto) 0.2 10 ^3/uL (0-0.2) Nucleated Red Blood Cells 0.2 % Platelet Estimate Adequate Hypochromasia (manual) Slight Anisocytosis (manual) Slight Microcytosis Slight Stomatocytes Few Sodium Level 141 mmol/L (136-145) Potassium Level 3.2 mmol/L (3.5-5.1) Chloride Level 104 mmol/L (98-107) Carbon Dioxide Level 25 mmol/L (20-31) Anion Gap 12 (5-15) Blood Urea Nitrogen 14 mg/dL (9-23) Creatinine 1.04 mg/dL (0.550-1.02) Glomerular Filtration Rate Calc 57 mL/min (>90) BUN/Creatinine Ratio 13.5 (10.0-20.0) Serum Glucose 110 mg/dL (74-106) Calcium Level 9.8 mg/dL (8.7-10.4) Total Bilirubin 0.6 mg/dL (0.2-1.0) Aspartate Amino Transferase (AST) 38 U/L (13-40) Alanine Aminotransferase (ALT) 15 U/L (7-40) Alkaline Phosphatase 74 U/L (46-116) Total Protein 7.1 g/dL (5.7-8.2) Albumin 4.2 g/dL (3.2-4.8) Urine Color Colorless (Yellow) Urine Clarity Clear (Clear) Urine pH 6.5 (5.0-9.0) Urine Specific [place] 1.011 (1.001-1.035) Urine Protein Negative (Negative) Urine Ketones Negative (Negative) Urine Blood Negative /uL (Negative) Urine Nitrite Negative (Negative) Urine Bilirubin Negative (Negative) Urine Urobilinogen Normal mg/dL (Negative) Urine Leukocyte Esterase Negative /uL (Negative) Urine RBC None seen /hpf (0 - 4) Urine Microscopic WBC 2 /HPF (0-5) Urine Squamous Epithelial Cells Few /hpf (<5) Urine Bacteria Few /hpf (None Seen) Urine Glucose Normal mg/dL (Normal) Other Laboratory Tests 08/19/24 04:42 Brief Hx & Hospital Course: 3-year-old female with a history of hypertension hypothyroidism peptic ulcer disease history of GI bleed rheumatoid arthritis history of stroke with a no residual deficits history of left knee replacement [facility] April 2024 brought in for generalized weakness found to have sepsis secondary to urinary tract infection started on Invanz 1 g IV daily urine cultures came back positive for ESBL Klebsiella pneumoniae. Patient will be discharged to longterm facility for Invanz 1 g IV daily for 14 days. the plan is acceptable with the patient's and the [id number] at the bedside. Physical therapy ordered patient is bed-bound secondary to the recent left knee replacement Consults/Reason for consult None Operations or Procedures None Condition at Discharge: Fair Final Diagnosis/Problems List Sepsis secondary to urinary tract infection urine cultures growing ESBL Klebsiella pneumoniae, continue Invanz for 14 days Chronic anemia Hypertension Hypothyroidism Peptic ulcer disease History of GI bleed Rheumatoid arthritis History of stroke with no residual deficits History of left knee replacement Apr 2024 [facility] Moderate malnutrition Discharge Disposition: Care Home Facility Discharge Instruct/Medications Diet: Cardiac 2g Na,low cholest Activity: Light activity Follow Up/Referral: Follow up with the assisted Medications: Invanz 1 g IV daily for two weeks See list for other meds 35 (Time taken for discharge summary 35 minutes) Discharge Statement: "Patient was advised to return to the ER or call 911 if any headaches, dizziness, shortness of breath, chest pain, abdominal pain, bleeding, fevers, or worsening of medical condition. Patient was counseled about treatment plan, medications, possible side effects, patientverbalized understanding. All questions were answered to the best of my ability. This discharge took greater then 30 minutes in planning, reviewing documentation, counseling the patient, and discussing with other team members." ASSESSMENT ASSESSMENT Hospital Course Improved Assessment Sepsis secondary to urinary tract infection urine cultures growing ESBL Klebsiella pneumoniae, continue Invanz for 14 days Chronic anemia Hypertension Hypothyroidism Peptic ulcer disease History of GI bleed Rheumatoid arthritis History of stroke with no residual deficits History of left knee replacement Apr 2024 [facility] Moderate malnutrition Date of Service: Aug 21, 2024 Billing Provider: WENCESLAO LOPEZ MD Common Visit Codes: 61041-RWF/OBS DISCH DAY >30min WENCESLAO LOPEZ MD Aug 21, 2024 09:54
[2024-08-21 11:15] LABS: COVID19 ANTIGEN SOFIA FIA NEGATIVE (NEGATIVE)
[2024-08-21 12:28] VITALS: BP 120/68; PULSE 90; RESP 20; TEMP 98.6; O2SAT 97
[2024-08-21 16:04] VITALS: BP 122/71; PULSE 72; RESP 18; TEMP 37; O2SAT 95
[2024-08-21 16:29] VITALS: BP 98/63; PULSE 98; RESP 20; TEMP 98.6; O2SAT 93
== END 2024-08-21 17:45 | DRG 872 ==
LOC: ER 05:23 → EEVIPCON 05:23 → OVERFLOW 09:49 → EAST 17:37
PROVIDERS: ADMIT Family Medicine; ATTEND Family Medicine
PROC: 05HF33Z Insertion of Infusion Device into Left Cephalic Vein, Percutaneous Approach (ICD-10-PCS; principal; 2024-08-21)
PROC: B54NZZA Ultrasonography of Left Upper Extremity Veins, Guidance (ICD-10-PCS; 2024-08-21)
DX: A41.59 Other Gram-negative sepsis (principal); N17.9 Acute kidney failure, unspecified; E44.0 Moderate protein-calorie malnutrition; Z16.12 Extended spectrum beta lactamase (ESBL) resistance; N39.0 Urinary tract infection, site not specified; I10 Essential (primary) hypertension; E03.9 Hypothyroidism, unspecified; B96.1 Klebsiella pneumoniae [K. pneumoniae] as the cause of diseases classified elsewhere; M06.9 Rheumatoid arthritis, unspecified; D50.9 Iron deficiency anemia, unspecified; Z20.822 Contact with and (suspected) exposure to COVID-19; Z96.652 Presence of left artificial knee joint; M54.50 Low back pain, unspecified; Z88.0 Allergy status to penicillin; Z88.2 Allergy status to sulfonamides; Z79.899 Other long term (current) drug therapy; Z87.11 Personal history of peptic ulcer disease; Z86.73 Personal history of transient ischemic attack (TIA), and cerebral infarction without residual deficits; Z68.34 Body mass index [BMI] 34.0-34.9, adult; Z74.01 Bed confinement status
CPT/HCPCS: 36415; 74176; 80048; 80053; 81001; 85025; 87081; 87086; 87088; 87186; 87426; 96365; 96372; 96375; 97163; G0378; J1335